=== PATIENT | female | born 1940 | race Asian ===

== ENCOUNTER 2020-06-28 14:05 | Emergency (ER) | payer MEDICARE, MEDICAID ==
--- NOTE | 2020-06-28 14:41 | EDM.PDOC ---
ED HPI GENERAL MEDICAL PROBLEM - General Chief Complaint: General Stated Complaint: DIFFCULTY BREATHING/LOW BACK PAIN/ANXIETY Time Seen by Provider: 06/28/20 14:11 - History of Present Illness INITIAL COMMENTS - FREE TEXT/NARRATIVE: History of present illness: Patient presents with low back pain for 2 weeks she denies any trauma or injury no fevers. She is not had this type of pain before she states it hurts worse when she moves she denies any dysuria or fever she is not having any nausea or vomiting movement makes it worse being still makes it better it is unclear whether she has taken any medication for this or not Review of systems: As per history of present illness and below otherwise all systems reviewed and negative. Past medical history: As per history of present illness and as reviewed below otherwise nonc ontributory. Surgical history: As per history of present illness and as reviewed below otherwise noncontributory. Social history: No reported history of drug or alcohol abuse. Family history: As per history of present illness and as reviewed below otherwise noncontributory. Physical exam: HEENT: Atraumatic, normocephalic, pupils reactive, negative for conjunctival pallor or scleral icterus, mucous membranes moist, throat clear, neck supple, nontender, trachea midline. Lungs: Clear to auscultation, breath sounds equal bilaterally, chest nontender. Heart: S1S2, regular, negative for clicks, rubs, or JVD. Abdomen: Soft, nondistended, nontender. Negative for masses or hepatosplenomegaly. Negative for costovertebral tenderness. Pelvis: Stable nontender. Genitourinary: Deferred. Rectal: Deferred. Extremities: Atraumatic, negative for cords or calf pain. Neurovascular unremarkable. Neuro: Awake, alert, oriented. Cranial nerves II through XII unremarkable. Cerebellum unremarkable. Motor and sensory unremarkable throughout. Exam nonfocal. No saddle anesthesia great toe strength 5 out of 5 Back: There is tenderness in the paraspinal musculature at L4-L5 L3 no midline tenderness Diagnostics: [] Therapeutics: [] Impression: Low back pain [] Plan: Lumbar spine film urinalysis and reassess [] Definitive disposition and diagnosis as appropriate pending reevaluation and review of above. Lower Back Pain Score (Numeric/FACES): 7 ED ROS GENERAL - Review of Systems Review Of Systems: See Below ED EXAM, GENERAL - Physical Exam Exam: See Below Course - Vital Signs Text/Narrative:: Patient presents with atraumatic and afebrile back pain. No history of trauma no history of any heavy lifting her 3 view lumbar spine was read interpreted by me no acute fractures or dislocations are appreciated there are some minor DJD changes. Patient has a urinary tract infection she will be discharged with some Keflex follow-up with primary care Last Recorded V/S: Last Vital Signs Temp 36.2 C 06/28/20 14:34 Pulse 94 06/28/20 14:34 Resp 18 06/28/20 14:34 BP 163/86 H 06/28/20 14:34 Pulse Ox 95 06/28/20 14:36 - Orders/Labs/Meds Orders: Active Orders 24 hr Category Date Time Status Lumbar Spine 2 or 3V [CR] Stat Exams 06/28/20 14:38 Taken Labs: Laboratory Tests 06/28/20 Range/Units 14:49 Urine Color YELLOW Urine Appearance CLEAR Urine pH 7.0 (5.0-8.0) Ur Specific [place] 1.015 (1.001-1.035) Urine Protein TRACE H (NEGATIVE) mg/dL Urine Glucose (UA) NEGATIVE (NEGATIVE) mg/dL Urine Ketones TRACE H (NEGATIVE) mg/dL Urine Occult Blood TRACE-INTACT H (NEGATIVE) Urine Nitrite POSITIVE H (NEGATIVE) Urine Bilirubin SMALL H (NEGATIVE) Urine Ictotest NEGATIVE Urine Urobilinogen 1.0 (<2.0) EU/dL Ur Leukocyte Esterase SMALL H (NEGATIVE) Urine RBC 1-2 (0-2/HPF) Urine WBC 2-3 (0-5/HPF) Ur Epithelial Cells OCCASIONAL (NONE-FEW) Urine Bacteria 1+ H (NEGATIVE) Departure - Departure Time of Disposition: 15:52 Disposition: Home, Self-Care 01 Condition: Good Clinical Impression: Urinary tract infection, Back pain - Discharge Information *PRESCRIPTION DRUG MONITORING PROGRAM REVIEWED*: Not Applicable *COPY OF PRESCRIPTION DRUG MONITORING REPORT IN PATIENT ANTOLIN: Not Applicable Instructions: Urinary Tract Infection, Adult, [id number], Acute Back Pain, Adult Referrals: PCP,None [Primary Care Provider] - Forms: ED Department Discharge Additional Instructions: The following information is given to patients seen in the emergency department who are being discharged to home. This information is to outline your options for follow-up care. We provide all patients seen in our emergency department with a follow-up referral. The need for follow-up, as well as the timing and circumstances, are variable depending upon the specifics of your emergency department visit. If you don't have a primary care physician on staff, we will provide you with a referral. We always advise you to contact your personal physician following an emergency department visit to inform them of the circumstance of the visit and for follow-up with them and/or the need for any referrals to a consulting specialist. The emergency department will also refer you to a specialist when appropriate. This referral assures that you have the opportunity for follow-up care with a specialist. All of these measure are taken in an effort to provide you with optimal care, which includes your follow-up. Under all circumstances we always encourage you to contact your private physician who remains a resource for coordinating your care. When calling for follow-up care, please make the office aware that this follow-up is from your recent emergency room visit. If for any reason you are refused follow-up, please contact the [facility] Emergency Department at and asked to speak to the emergency department charge nurse. Sepsis Event Note (ED) - Evaluation Sepsis Screening Result: No Definite Risk - Focused Exam Vital Signs: Vital Signs Temp Pulse Resp BP Pulse Ox 06/28/20 14:36 95 06/28/20 14:34 36.2 C 94 18 163/86 H 89 L - My Orders Last 24 Hours: My Active Orders 06/28/20 14:38 Lumbar Spine 2 or 3V [CR] Stat - Assessment/Plan Last 24 Hours: My Active Orders 06/28/20 14:38 Lumbar Spine 2 or 3V [CR] Stat
[2020-06-28] MEDS ORDERED: Acetaminophen 500 MG Tab PO ONE (15:57)
--- NOTE | 2020-06-28 16:11 | CR ---
Indication: Lumbosacral spine Technique: Three views Comparison: None Findings: Bones: Alignment is normal. No fractures or bone lesions. Disc spaces: Small lumbar osteophytes, greatest at the L3-4 and L4-5 level consistent with degenerative disc disease. Soft tissues: Atherosclerosis. Dictated by Sascha Bowen MD @ Jun 28 2020 4:05PM Signed by Dr. Sascha Bowen @ Jun 28 2020 4:09PM
== END 2020-06-28 16:29 | disposition home or self-care (01) ==
LOC: MW.ED 14:05
DX: N39.0 Urinary tract infection, site not specified (principal)
CPT/HCPCS: 72100; 81001; 99283; A9270

== ENCOUNTER 2020-10-11 11:16 | Emergency (ER) | payer MEDICARE, MEDICAID ==
[2020-10-11] MEDS ORDERED: Sodium Chloride 0.9% 2.5 ML Syringe FLUSH PRN (11:51)
[2020-10-11] MEDS ORDERED: Sodium Chloride 0.9% 10 ML Syringe FLUSH PRN (11:51)
--- NOTE | 2020-10-11 11:54 | EDM.PDOC ---
ED HPI GENERAL MEDICAL PROBLEM - General Stated Complaint: NOT FEELING WELL Time Seen by Provider: 10/11/20 11:20 Source of Information: Reports: Patient History Limitations: Reports: No Limitations - History of Present Illness INITIAL COMMENTS - FREE TEXT/NARRATIVE: 71-year-old female past medical history hypertension, on a beta-jimy, hyperlipidemia, [id number] diabetes presents for generalized weakness and fall. History is from patient's son. Patient is Qatari speaking. Patient is noticed for the last couple of weeks feeling more dizzy and generalized weakness than normal. She does state that she is eating well. She denies any dysuria but notes that she is urinating a lot more frequently than normal. She states that she had this checked out last week and was told that s he did not have an infection. She fell last week but reports no injuries from that fall. She fell yesterday injuring her right hip and has since noticed pain. She has been able to walk. She states it is not painful to touch but it is painful to walk on. She denies loss of consciousness. She denies hitting her head yesterday but states that she hit her head when she fell a week ago. - Related Data Allergies Allergy/AdvReac Type Severity Reaction Status Date / Time No Known Allergies Allergy Verified 06/28/20 16:06 Home Meds: Home Meds Acetaminophen [Tylenol Extra Strength] 500 mg PO Q6H #40 tab 06/28/20 [Rx] Losartan [Cozaar] 50 mg PO DAILY 10/11/20 [History] Meloxicam [Mobic] 15 mg PO DAILY 10/11/20 [History] Pravastatin [Pravachol] 40 mg PO BEDTIME 10/11/20 [History] Solifenacin Succinate 5 mg PO DAILY 10/11/20 [History] amLODIPine [Norvasc] 10 mg PO DAILY 10/11/20 [History] atenoloL [Atenolol] 50 mg PO DAILY 10/11/20 [History] metFORMIN [Glucophage] 500 mg PO BIDMEALS 10/11/20 [History] Social & Family History - Caffeine Use Caffeine Use: Reports: None ED ROS GENERAL - Review of Systems Review Of Systems: Comprehensive ROS is negative, except as noted in HPI. ED EXAM, GENERAL - Physical Exam Exam: See Below Exam Limited By: No Limitations General Appearance: Alert, WD/WN, No Apparent Distress Eye Exam: Bilateral Eye: EOMI, PERRL Throat/Mouth: Normal Voice, No Airway Compromise Head: Atraumatic, Normocephalic Neck: Normal Inspection Respiratory/Chest: No Respiratory Distress, Lungs Clear, Normal Breath Sounds, No Accessory Muscle Use, Chest Non-Tender Cardiovascular: Normal Peripheral Pulses, Regular Rate, Rhythm, No Edema GI/Abdominal: Soft, Non-Tender Extremities: Normal Inspection, Normal Range of Motion, Non-Tender, Other (no pelvic TTP, no axial loading TTP, no overt extremity deformities ) Psychiatric: Normal Affect, Normal Mood Skin Exam: Warm, Dry, Intact, Normal Color #1 Interpretation EKG Date: 10/11/20 Time: 11:57 Rhythm: NSR Rate (Beats/Min): 93 [place]: Normal P-Wave: Present QRS: Normal ST-T: Normal QT: Normal KS/PQ Interval: 160 Comparison: NA - No Prior EKG EKG Interpretation Comments: non-ischemic EKG Course - Vital Signs Last Recorded V/S: Last Vital Signs Temp Pulse 89 10/11/20 13:00 Resp 21 H 10/11/20 13:00 BP 175/82 H 10/11/20 13:00 Pulse Ox 97 10/11/20 13:00 - Orders/Labs/Meds Orders: Active Orders 24 hr Category Date Time Status Blood Glucose Check, Bedside [RC] ONETIME Care 10/11/20 11:52 Active EKG Documentation Completion [RC] STAT Care 10/11/20 11:51 Active Insert Chavez Catheter [Insert Urinary Catheter] [OM.PC] Care 10/11/20 12:00 Ordered Q24H Urinary Catheter Assessment [RC] ASDIRECTED Care 10/11/20 12:00 Active Sodium Chloride 0.9% [Saline Flush] Med 10/11/20 11:51 Active 10 ml FLUSH ASDIRECTED PRN Sodium Chloride 0.9% [Saline Flush] Med 10/11/20 11:51 Active 2.5 ml FLUSH ASDIRECTED PRN Saline Lock Insert [OM.PC] Stat Oth 10/11/20 11:51 Ordered Medication Orders Sodium Chloride (Saline Flush) 10 ml FLUSH ASDIRECTED PRN PRN Reason: Keep Vein Open Last Admin: 10/11/20 13:05 Dose: 10 ml Documented by: MEL Sodium Chloride (Saline Flush) 2.5 ml FLUSH ASDIRECTED PRN PRN Reason: Keep Vein Open Last Admin: 10/11/20 13:05 Dose: 2.5 ml Documented by: MEL Labs: Laboratory Tests 10/11/20 10/11/20 10/11/20 Range/Units 12:05 12:05 12:05 WBC 7.90 (4.0-11.0) K/uL RBC 5.49 (4.30-5.90) M/uL Hgb 13.7 (12.0-16.0) g/dL Hct 42.5 (36.0-46.0) % MCV 77.4 L (80.0-98.0) fL MCH 25.0 L (27.0-32.0) pg MCHC 32.2 (31.0-37.0) g/dL RDW Std Deviation 42.0 (28.0-62.0) fl RDW Coeff of Jonny 15 (11.0-15.0) % Plt Count 161 (150-400) K/uL MPV 10.00 (7.40-12.00) fL Neut % (Auto) 67.8 (48.0-80.0) % Lymph % (Auto) 22.3 (16.0-40.0) % [place] % (Auto) 8.1 (0.0-15.0) % Eos % (Auto) 1.4 (0.0-7.0) % Baso % (Auto) 0.4 (0.0-1.5) % Neut # (Auto) 5.4 (1.4-5.7) K/uL Lymph # (Auto) 1.8 (0.6-2.4) K/uL Marshall # (Auto) 0.6 (0.0-0.8) K/uL Eos # (Auto) 0.1 (0.0-0.7) K/uL Baso # (Auto) 0.0 (0.0-0.1) K/uL Nucleated RBC % 0.0 /100WBC Nucleated RBCs # 0 K/uL Lactate 1.1 (0.20-2.00) mmol/L Sodium 142 (136-145) mmol/L Potassium 3.7 (3.5-5.1) mmol/L Chloride 106 (98-107) mmol/L Carbon Dioxide 29.5 (21.0-32.0) mmol/L BUN 16 (7.0-18.0) mg/dL Creatinine 0.7 (0.6-1.0) mg/dL Est Cr Clr Drug Dosing TNP Estimated GFR (MDRD) > 60.0 ml/min Glucose 123 H (74-106) mg/dL POC Glucose (60-110) mg/dL Calcium 9.0 (8.5-10.1) mg/dL Magnesium 2.1 (1.8-2.4) mg/dL Total Bilirubin 0.4 (0.2-1.0) mg/dL AST 26 (15-37) IU/L ALT 32 (14-63) IU/L Alkaline Phosphatase 73 (46-116) U/L Troponin I < 0.050 (0.000-0.056) ng/mL B-Natriuretic Peptide (<100) PG/ML Total Protein 7.2 (6.4-8.2) g/dL Albumin 3.3 L (3.4-5.0) g/dL Globulin 3.9 (2.6-4.0) g/dL Albumin/Globulin Ratio 0.9 (0.9-1.6) TSH 3rd Generation 2.84 (0.36-3.74) uIU/mL Urine Color Urine Appearance Urine pH (5.0-8.0) Ur Specific [place] (1.001-1.035) Urine Protein (NEGATIVE) mg/dL Urine Glucose (UA) (NEGATIVE) mg/dL Urine Ketones (NEGATIVE) mg/dL Urine Occult Blood (NEGATIVE) Urine Nitrite (NEGATIVE) Urine Bilirubin (NEGATIVE) Urine Urobilinogen (<2.0) EU/dL Ur Leukocyte Esterase (NEGATIVE) SARS-CoV-2 RNA (ARI) (NEGATIVE) 10/11/20 10/11/20 10/11/20 Range/Units 12:05 12:17 12:20 WBC (4.0-11.0) K/uL RBC (4.30-5.90) M/uL Hgb (12.0-16.0) g/dL Hct (36.0-46.0) % MCV (80.0-98.0) fL MCH (27.0-32.0) pg MCHC (31.0-37.0) g/dL RDW Std Deviation (28.0-62.0) fl RDW Coeff of Jonny (11.0-15.0) % Plt Count (150-400) K/uL MPV (7.40-12.00) fL Neut % (Auto) (48.0-80.0) % Lymph % (Auto) (16.0-40.0) % Marshall % (Auto) (0.0-15.0) % Eos % (Auto) (0.0-7.0) % Baso % (Auto) (0.0-1.5) % Neut # (Auto) (1.4-5.7) K/uL Lymph # (Auto) (0.6-2.4) K/uL Marshall # (Auto) (0.0-0.8) K/uL Eos # (Auto) (0.0-0.7) K/uL Baso # (Auto) (0.0-0.1) K/uL Nucleated RBC % /100WBC Nucleated RBCs # K/uL Lactate (0.20-2.00) mmol/L Sodium (136-145) mmol/L Potassium (3.5-5.1) mmol/L Chloride (98-107) mmol/L Carbon Dioxide (21.0-32.0) mmol/L BUN (7.0-18.0) mg/dL Creatinine (0.6-1.0) mg/dL Est Cr Clr Drug Dosing Estimated GFR (MDRD) ml/min Glucose (74-106) mg/dL POC Glucose 119 H (60-110) mg/dL Calcium (8.5-10.1) mg/dL Magnesium (1.8-2.4) mg/dL Total Bilirubin (0.2-1.0) mg/dL AST (15-37) IU/L ALT (14-63) IU/L Alkaline Phosphatase (46-116) U/L Troponin I (0.000-0.056) ng/mL B-Natriuretic Peptide 12 (<100) PG/ML Total Protein (6.4-8.2) g/dL Albumin (3.4-5.0) g/dL Globulin (2.6-4.0) g/dL Albumin/Globulin Ratio (0.9-1.6) TSH 3rd Generation (0.36-3.74) uIU/mL Urine Color Urine Appearance Urine pH (5.0-8.0) Ur Specific [place] (1.001-1.035) Urine Protein (NEGATIVE) mg/dL Urine Glucose (UA) (NEGATIVE) mg/dL Urine Ketones (NEGATIVE) mg/dL Urine Occult Blood (NEGATIVE) Urine Nitrite (NEGATIVE) Urine Bilirubin (NEGATIVE) Urine Urobilinogen (<2.0) EU/dL Ur Leukocyte Esterase (NEGATIVE) SARS-CoV-2 RNA (ARI) NEGATIVE (NEGATIVE) 10/11/20 Range/Units 13:10 WBC (4.0-11.0) K/uL RBC (4.30-5.90) M/uL Hgb (12.0-16.0) g/dL Hct (36.0-46.0) % MCV (80.0-98.0) fL MCH (27.0-32.0) pg MCHC (31.0-37.0) g/dL RDW Std Deviation (28.0-62.0) fl RDW Coeff of Jonny (11.0-15.0) % Plt Count (150-400) K/uL MPV (7.40-12.00) fL Neut % (Auto) (48.0-80.0) % Lymph % (Auto) (16.0-40.0) % [place] % (Auto) (0.0-15.0) % Eos % (Auto) (0.0-7.0) % Baso % (Auto) (0.0-1.5) % Neut # (Auto) (1.4-5.7) K/uL Lymph # (Auto) (0.6-2.4) K/uL [place] # (Auto) (0.0-0.8) K/uL Eos # (Auto) (0.0-0.7) K/uL Baso # (Auto) (0.0-0.1) K/uL Nucleated RBC % /100WBC Nucleated RBCs # K/uL Lactate (0.20-2.00) mmol/L Sodium (136-145) mmol/L Potassium (3.5-5.1) mmol/L Chloride (98-107) mmol/L Carbon Dioxide (21.0-32.0) mmol/L BUN (7.0-18.0) mg/dL Creatinine (0.6-1.0) mg/dL Est Cr Clr Drug Dosing Estimated GFR (MDRD) ml/min Glucose (74-106) mg/dL POC Glucose (60-110) mg/dL Calcium (8.5-10.1) mg/dL Magnesium (1.8-2.4) mg/dL Total Bilirubin (0.2-1.0) mg/dL AST (15-37) IU/L ALT (14-63) IU/L Alkaline Phosphatase (46-116) U/L Troponin I (0.000-0.056) ng/mL B-Natriuretic Peptide (<100) PG/ML Total Protein (6.4-8.2) g/dL Albumin (3.4-5.0) g/dL Globulin (2.6-4.0) g/dL Albumin/Globulin Ratio (0.9-1.6) TSH 3rd Generation (0.36-3.74) uIU/mL Urine Color YELLOW Urine Appearance CLEAR Urine pH 6.5 (5.0-8.0) Ur Specific [place] 1.015 (1.001-1.035) Urine Protein NEGATIVE (NEGATIVE) mg/dL Urine Glucose (UA) NEGATIVE (NEGATIVE) mg/dL Urine Ketones NEGATIVE (NEGATIVE) mg/dL Urine Occult Blood NEGATIVE (NEGATIVE) Urine Nitrite NEGATIVE (NEGATIVE) Urine Bilirubin NEGATIVE (NEGATIVE) Urine Urobilinogen 0.2 (<2.0) EU/dL Ur Leukocyte Esterase NEGATIVE (NEGATIVE) SARS-CoV-2 RNA (ARI) (NEGATIVE) Meds: Medications Generic Name Dose Route Start Last Admin Trade Name Freq PRN Reason Stop Dose Admin Sodium Chloride 10 ml 10/11/20 11:51 10/11/20 13:05 Saline Flush FLUSH 10 ml ASDIRECTED PRN Administration Keep Vein Open Sodium Chloride 2.5 ml 10/11/20 11:51 10/11/20 13:05 Saline Flush FLUSH 2.5 ml ASDIRECTED PRN Administration Keep Vein Open - Re-Assessments/Exams Free Text/Narrative Re-Assessment/Exam: 10/11/20 12:46 We will get broad work-up for nonspecific symptoms. We will follow up results and disposition accordingly. 10/11/20 14:44 Labs and imaging are all unremarkable. Spoke with patient and son at length. Patient has been increasingly dizzy for several months. She does have a walker and a cane at home which she is hesitant to use. I explained to her the importance of using these assisted devices in order to maintain her independence. She understands. She will follow-up with her regular doctor. Return precautions were discussed at length. Departure - Departure Time of Disposition: 14:44 Disposition: Home, Self-Care 01 Condition: Good Clinical Impression: Weakness - Discharge Information Instructions: Weakness, [id number] Referrals: PCP,None [Primary Care Provider] - Additional Instructions: Your work-up is unremarkable. Please follow-up with your regular physician. If you have any concern at home about your safety please return to the emergency department. The following information is given to patients seen in the emergency department who are being discharged to home. This information is to outline your options for follow-up care. We provide all patients seen in our emergency department with a follow-up referral. The need for follow-up, as well as the timing and circumstances, are variable depending upon the specifics of your emergency department visit. If you don't have a primary care physician on staff, we will provide you with a referral. We always advise you to contact your personal physician following an emergency department visit to inform them of the circumstance of the visit and for follow-up with them and/or the need for any referrals to a consulting specialist. The emergency department will also refer you to a specialist when appropriate. This referral assures that you have the opportunity for follow-up care with a specialist. All of these measure are taken in an effort to provide you with optimal care, which includes your follow-up. Under all circumstances we always encourage you to contact your private physician who remains a resource for coordinating your care. When calling for follow-up care, please make the office aware that this follow-up is from your recent emergency room visit. If for any reason you are refused follow-up, please contact the [facility] Emergency Department at and asked to speak to the emergency department charge nurse. Please follow up with your primary care physician. If you do not have a primary care physician, see below: [facility] [address] [place] [id number] [address] [place] [address] [place] [address] [facility] [address] [place] [address] Sepsis Event Note (ED) - Focused Exam Vital Signs: Vital Signs Pulse Resp BP Pulse Ox 10/11/20 13:00 89 21 H 175/82 H 97 10/11/20 12:30 88 22 H 188/89 H 94 L 10/11/20 12:15 87 22 H 189/81 H 90 L - My Orders Last 24 Hours: My Active Orders 10/11/20 11:51 EKG Documentation Completion [RC] STAT Sodium Chloride 0.9% [Saline Flush] 10 ml FLUSH ASDIRECTED PRN Sodium Chloride 0.9% [Saline Flush] 2.5 ml FLUSH ASDIRECTED PRN Saline Lock Insert [OM.PC] Stat 10/11/20 11:52 Blood Glucose Check, Bedside [RC] ONETIME 10/11/20 12:00 Insert Chavez Catheter [Insert Urinary Catheter] [OM.PC] Q24H Urinary Catheter Assessment [RC] ASDIRECTED - Assessment/Plan Last 24 Hours: My Active Orders 10/11/20 11:51 EKG Documentation Completion [RC] STAT Sodium Chloride 0.9% [Saline Flush] 10 ml FLUSH ASDIRECTED PRN Sodium Chloride 0.9% [Saline Flush] 2.5 ml FLUSH ASDIRECTED PRN Saline Lock Insert [OM.PC] Stat 10/11/20 11:52 Blood Glucose Check, Bedside [RC] ONETIME 10/11/20 12:00 Insert Chavez Catheter [Insert Urinary Catheter] [OM.PC] Q24H Urinary Catheter Assessment [RC] ASDIRECTED
--- NOTE | 2020-10-11 12:45 | CR ---
INDICATION: Weakness. Trauma. COMPARISON: None TECHNIQUE: Single-view portable chest radiograph FINDINGS: TUBES AND LINES: None. HEART AND MEDIASTINUM: Enlarged heart. LUNGS AND PLEURAL SPACES: Abnormal pattern could represent mild pulmonary edema or multifocal pneumonia including COVID pneumonia if clinically appropriate. No pleural effusion or pneumothorax OSSEOUS STRUCTURES: Age-appropriate appearance. No acute focal finding. IMPRESSION: Enlarged heart. Abnormal pattern could represent mild pulmonary edema or multifocal pneumonia including COVID pneumonia if clinically appropriate. No visible acute posttraumatic finding. Dictated by Raf Lovett MD @ Oct 11 2020 12:42PM Signed by Dr. Raf Lovett @ Oct 11 2020 12:43PM
--- NOTE | 2020-10-11 12:47 | CR ---
Indication: Trauma Technique: Two views of the right hip were acquired is AP and lateral views Comparison: None Findings: Overlying soft tissue and humeral station limits the study. However, I see no fracture, dislocation or destructive process. There degenerative changes. Impression: Somewhat limited but no evidence of acute fracture, dislocation or destructive process involving the right hip Dictated by Raf Lovett MD @ Oct 11 2020 12:43PM Signed by Dr. Raf Lovett @ Oct 11 2020 12:45PM
[2020-10-11 12:58] LABS: BLOOD UREA NITROGEN,BUN 16 mg/dL (7.0-18.0); CARBON DIOXIDE,CO2 29.5 mmol/L (21.0-32.0); CHLORIDE,CL 106 mmol/L (98-107); GLUCOSE RANDOM 123 mg/dL (74-106); POTASSIUM,K 3.7 mmol/L (3.5-5.1); SODIUM,NA 142 mmol/L (136-145)
--- NOTE | 2020-10-11 13:45 | CT ---
INDICATION: Dizziness Trauma COMPARISON: None TECHNIQUE: CT examination of the head was performed as axial sections without intravenous contrast. Images were obtained from the vertex of the skull through the skull base. Please note that all CT scans at this facility use dose modulation, iterative reconstruction, and/or weight-based dosing when appropriate to reduce radiation dose to as low as reasonably achievable. FINDINGS: The brain shows no sign of mass lesion, mass effect, hemorrhage, or edema. There are involutional changes. There is mild to moderate cortical atrophy and there is mild white matter disease. There is no hydrocephalus. Small subcortical lacunar infarcts that do not appear to be acute. Intracranial atherosclerosis The visualized portions of the orbits are normal in appearance. The osseous structures are normal in appearance with no sign of abnormality in the skull base or calvarium. IMPRESSION: Involutional changes. No acute focal findings Please note that all CT scans at this facility use dose modulation, iterative reconstruction, and/or weight-based dosing when appropriate to reduce radiation dose to as low as reasonably achievable. Dictated by Raf Lovett MD @ Oct 11 2020 1:42PM Signed by Dr. Raf Lovett @ Oct 11 2020 1:44PM
--- NOTE | 2020-10-11 14:29 | CT ---
INDICATION: Trauma COMPARISON: None TECHNIQUE: CT examination of the cervical spine is performed without contrast using spiral technique. Thin axial, sagittal and coronal reconstructions were made. Please note that all CT scans at this facility use dose modulation, iterative reconstruction, and/or weight-based dosing when appropriate to reduce radiation dose to as low as reasonably achievable. FINDINGS: : There is straightening of the spine which is probably due to muscle spasm or positioning. Bone mineral density is decreased. Moderate degenerative changes are noted diffusely. There is no lytic or blastic lesion, fracture or dislocation identified. IMPRESSION: Straightening. Demineralization. Degenerative change. No evidence for acute fracture, dislocation or destructive process. Please note that all CT scans at this facility use dose modulation, iterative reconstruction, and/or weight-based dosing when appropriate to reduce radiation dose to as low as reasonably achievable. Dictated by Raf Lovett MD @ Oct 11 2020 2:25PM Signed by Dr. Raf Lovett @ Oct 11 2020 2:27PM
== END 2020-10-11 15:00 | disposition home or self-care (01) ==
LOC: MW.ED 11:16
DX: R53.1 Weakness (principal); R42 Dizziness and giddiness; I10 Essential (primary) hypertension; E78.5 Hyperlipidemia, unspecified; E11.9 Type 2 diabetes mellitus without complications; Z20.822 Contact with and (suspected) exposure to COVID-19; Z79.899 Other long term (current) drug therapy
CPT/HCPCS: 36415; 70450; 71045; 72125; 73502; 80053; 81003; 82962; 83605; 83735; 83880; 84443; 84484; 85025; 93005; 99285; U0002; 93010; 99283

== ENCOUNTER 2020-10-11 18:09 | Emergency (ER) | payer MEDICARE, MEDICAID ==
[2020-10-11] MEDS ORDERED: Sodium Chloride 0.9% 10 ML Syringe FLUSH PRN (18:12)
[2020-10-11] MEDS ORDERED: Sodium Chloride 0.9% 2.5 ML Syringe FLUSH PRN (18:12)
--- NOTE | 2020-10-11 18:17 | EDM.PDOC ---
<Jonh Vu - Last Filed: 10/11/20 20:47> ED HPI GENERAL MEDICAL PROBLEM - General Stated Complaint: EMS ARRIVAL Time Seen by Provider: 10/11/20 18:10 - History of Present Illness INITIAL COMMENTS - FREE TEXT/NARRATIVE: Patient was signed out to me by Dr. Morales pending CTA at 7PM I did reevaluate the patient and patient's vitals were stable and she did have a left-sided facial droop with left upper and left lower extremity weakness. At this time it is uncertain as to when the patient's last known well was however the patient was evaluated earlier today with a normal neurological examination. Therefore window is the last 8 hours. Therefore the TPA will not be administered. Labs reviewed CBC is unremarkable. Coags are within normal limits. Lactic acid is normal. CMP is unremarkable. Troponin is negative. Imaging reviewed CT head without contrast does not reveal any acute intracranial hemorrhage or abnormality. The radiological images were viewed by myself along with reading the report from the radiologist. CTA of the head and neck does not reveal any hemodynamically significant stenosis. After imaging I did discuss with patient and son at bedside that I would like to transfer for stroke work-up. They were amenable to this plan. I did contact Dr. Tolliver prior to transfer to see if this could be managed here. Given the need for MRI and no MRI capabilities here over the weekend the patient should be transferred. I contacted [facility] in [place] and spoke with Dr. Torres who accepted the transfer. The patient will be transferred via ALS ambulance. Contact information for son is [phone] ([facility]) DISPOSITION: Patient was transferred to [facility] in [place] in stable condition CONDITION: Fair PROCEDURES: None FINAL IMPRESSION(S)/DIAGNOSES: 1. Acute CVA with left-sided weakness Jonh Vu M.D. - Related Data Allergies Allergy/AdvReac Type Severity Reaction Status Date / Time No Known Allergies Allergy Verified 10/11/20 20:13 Home Meds: Home Meds Acetaminophen [Tylenol Extra Strength] 500 mg PO Q6H #40 tab 06/28/20 [Rx] Losartan [Cozaar] 50 mg PO DAILY 10/11/20 [History] Meloxicam [Mobic] 15 mg PO DAILY 10/11/20 [History] Pravastatin [Pravachol] 40 mg PO BEDTIME 10/11/20 [History] Solifenacin Succinate 5 mg PO DAILY 10/11/20 [History] amLODIPine [Norvasc] 10 mg PO DAILY 10/11/20 [History] atenoloL [Atenolol] 50 mg PO DAILY 10/11/20 [History] metFORMIN [Glucophage] 500 mg PO BIDMEALS 10/11/20 [History] Departure - Departure Disposition: DC/[facility]fer to Acute Hospital [facility] Clinical Impression: TIA (transient ischemic attack) - Discharge Information Referrals: PCP,None [Primary Care Provider] - Forms: ED Department Discharge <Len Morales - Last Filed: 10/12/20 08:26> ED HPI GENERAL MEDICAL PROBLEM - General Source of Information: Reports: Patient History Limitations: Reports: No Limitations - History of Present Illness INITIAL COMMENTS - FREE TEXT/NARRATIVE: 79-year-old female past medical history hypertension, [id number] braden betes, hyperlipidemia presents for fall and concern for CVA. Patient was seen earlier today for 2 times falls in the last few weeks and increasing dizziness over the last couple of months. She had an extensive work-up which was unremarkable and was sent home with PMD follow-up. After arriving home, she fell and she did hit her head. Per family she did not have loss of consciousness. She was assisted up and EMS was called. EMS noted her to have left-sided weakness which seems to be resolving in route. Patient currently complains of dizziness and states that her left hand is not working well. Social & Family History - Caffeine Use Caffeine Use: Reports: None ED ROS GENERAL - Review of Systems Review Of Systems: Comprehensive ROS is negative, except as noted in HPI. ED EXAM, GENERAL - Physical Exam Exam: See Below Exam Limited By: No Limitations General Appearance: Alert, WD/WN, No Apparent Distress Eye Exam: Bilateral Eye: EOMI, PERRL Ears: Normal External Exam Nose: Normal Inspection Throat/Mouth: Normal Voice, No Airway Compromise Head: Atraumatic, Normocephalic Neck: Normal Inspection, Non-Tender Respiratory/Chest: No Respiratory Distress, Lungs Clear, Normal Breath Sounds, No Accessory Muscle Use Cardiovascular: Normal Peripheral Pulses, Regular Rate, Rhythm GI/Abdominal: Soft, Non-Tender Back Exam: Normal Inspection Extremities: Normal Inspection Neurological: Alert, Oriented, Other (Mild left facial droop with smiling, LUE weakness although can lift against gravity, LLE mild weakness ) Psychiatric: Normal Affect, Normal Mood Skin Exam: Warm, Dry, Intact, Normal Color Course - Vital Signs Last Recorded V/S: Last Vital Signs Temp 98 F 10/11/20 18:09 Pulse 91 10/11/20 20:43 Resp 20 10/11/20 20:43 BP 182/87 H 10/11/20 20:43 Pulse Ox 92 L 10/11/20 20:43 - Orders/Labs/Meds Orders: Active Orders 24 hr Category Date Time Status Saline Lock Insert [OM.PC] Stat Oth 10/11/20 18:13 Ordered Labs: Laboratory Tests 10/11/20 10/11/20 10/11/20 Range/Units 18:10 18:10 18:10 WBC 9.42 (4.0-11.0) K/uL RBC 5.64 (4.30-5.90) M/uL Hgb 14.2 (12.0-16.0) g/dL Hct 43.6 (36.0-46.0) % MCV 77.3 L (80.0-98.0) fL MCH 25.2 L (27.0-32.0) pg MCHC 32.6 (31.0-37.0) g/dL RDW Std Deviation 42.0 (28.0-62.0) fl RDW Coeff of Jonny 15 (11.0-15.0) % Plt Count 171 (150-400) K/uL MPV 10.40 (7.40-12.00) fL Neut % (Auto) 72.3 (48.0-80.0) % Lymph % (Auto) 20.5 (16.0-40.0) % Emmons % (Auto) 6.2 (0.0-15.0) % Eos % (Auto) 0.8 (0.0-7.0) % Baso % (Auto) 0.2 (0.0-1.5) % Neut # (Auto) 6.8 H (1.4-5.7) K/uL Lymph # (Auto) 1.9 (0.6-2.4) K/uL Emmons # (Auto) 0.6 (0.0-0.8) K/uL Eos # (Auto) 0.1 (0.0-0.7) K/uL Baso # (Auto) 0.0 (0.0-0.1) K/uL Nucleated RBC % 0.0 /100WBC Nucleated RBCs # 0 K/uL INR 1.00 APTT 24.3 (18.6-31.3) SEC Lactate 1.4 (0.20-2.00) mmol/L Sodium (136-145) mmol/L Potassium (3.5-5.1) mmol/L Chloride (98-107) mmol/L Carbon Dioxide (21.0-32.0) mmol/L BUN (7.0-18.0) mg/dL Creatinine (0.6-1.0) mg/dL Est Cr Clr Drug Dosing Estimated GFR (MDRD) ml/min Glucose (74-106) mg/dL Calcium (8.5-10.1) mg/dL Magnesium (1.8-2.4) mg/dL Total Bilirubin (0.2-1.0) mg/dL AST (15-37) IU/L ALT (14-63) IU/L Alkaline Phosphatase (46-116) U/L Troponin I (0.000-0.056) ng/mL B-Natriuretic Peptide (<100) PG/ML Total Protein (6.4-8.2) g/dL Albumin (3.4-5.0) g/dL Globulin (2.6-4.0) g/dL Albumin/Globulin Ratio (0.9-1.6) 10/11/20 10/11/20 Range/Units 18:10 18:10 WBC (4.0-11.0) K/uL RBC (4.30-5.90) M/uL Hgb (12.0-16.0) g/dL Hct (36.0-46.0) % MCV (80.0-98.0) fL MCH (27.0-32.0) pg MCHC (31.0-37.0) g/dL RDW Std Deviation (28.0-62.0) fl RDW Coeff of Jonny (11.0-15.0) % Plt Count (150-400) K/uL MPV (7.40-12.00) fL Neut % (Auto) (48.0-80.0) % Lymph % (Auto) (16.0-40.0) % Emmons % (Auto) (0.0-15.0) % Eos % (Auto) (0.0-7.0) % Baso % (Auto) (0.0-1.5) % Neut # (Auto) (1.4-5.7) K/uL Lymph # (Auto) (0.6-2.4) K/uL Emmons # (Auto) (0.0-0.8) K/uL Eos # (Auto) (0.0-0.7) K/uL Baso # (Auto) (0.0-0.1) K/uL Nucleated RBC % /100WBC Nucleated RBCs # K/uL INR APTT (18.6-31.3) SEC Lactate (0.20-2.00) mmol/L Sodium 142 (136-145) mmol/L Potassium 3.6 (3.5-5.1) mmol/L Chloride 105 (98-107) mmol/L Carbon Dioxide 29.2 (21.0-32.0) mmol/L BUN 13 (7.0-18.0) mg/dL Creatinine 0.8 (0.6-1.0) mg/dL Est Cr Clr Drug Dosing TNP Estimated GFR (MDRD) > 60.0 ml/min Glucose 145 H (74-106) mg/dL Calcium 8.9 (8.5-10.1) mg/dL Magnesium 2.1 (1.8-2.4) mg/dL Total Bilirubin 0.4 (0.2-1.0) mg/dL AST 25 (15-37) IU/L ALT 32 (14-63) IU/L Alkaline Phosphatase 75 (46-116) U/L Troponin I < 0.050 (0.000-0.056) ng/mL B-Natriuretic Peptide 11 (<100) PG/ML Total Protein 7.2 (6.4-8.2) g/dL Albumin 3.4 (3.4-5.0) g/dL Globulin 3.8 (2.6-4.0) g/dL Albumin/Globulin Ratio 0.9 (0.9-1.6) Meds: Medications Discontinued Medications Generic Name Dose Route Start Last Admin Trade Name Freq PRN Reason Stop Dose Admin Aspirin 324 mg 10/11/20 18:50 10/11/20 19:32 Aspirin PO 10/11/20 18:51 324 mg ONETIME ONE Administration Iopamidol 100 ml 10/11/20 18:55 10/11/20 18:55 Isovue Multipack-370 (76%) IVPUSH 10/11/20 18:56 100 ml ONETIME ONE Administration Sodium Chloride 10 ml 10/11/20 18:12 10/11/20 19:32 Saline Flush FLUSH 10 ml ASDIRECTED PRN Administration Keep Vein Open Sodium Chloride 2.5 ml 10/11/20 18:12 10/11/20 19:32 Saline Flush FLUSH 2.5 ml ASDIRECTED PRN Administration Keep Vein Open - Re-Assessments/Exams Free Text/Narrative Re-Assessment/Exam: 10/11/20 18:40 CT head no hemorrhage on wet read; will get CTA head/neck. Will get additional labs. UA already sent earlier. CXR also already sent earlier so will defer. Patient care will be transitioned to night-team ED physician pending additional workup and likely admission. Departure - Departure Time of Disposition: 20:43 Sepsis Event Note (ED) - Focused Exam Vital Signs: Vital Signs Pulse Resp BP Pulse Ox 10/11/20 20:43 91 20 182/87 H 92 L - My Orders Last 24 Hours: My Active Orders 10/11/20 18:13 Saline Lock Insert [OM.PC] Stat - Assessment/Plan Last 24 Hours: My Active Orders 10/11/20 18:13 Saline Lock Insert [OM.PC] Stat
[2020-10-11 18:42] LABS: BLOOD UREA NITROGEN,BUN 13 mg/dL (7.0-18.0); CARBON DIOXIDE,CO2 29.2 mmol/L (21.0-32.0); CHLORIDE,CL 105 mmol/L (98-107); GLUCOSE RANDOM 145 mg/dL (74-106); POTASSIUM,K 3.6 mmol/L (3.5-5.1); SODIUM,NA 142 mmol/L (136-145)
[2020-10-11] MEDS ORDERED: Aspirin 81 MG Tab.Chew PO ONE (18:50)
[2020-10-11] MEDS ORDERED: Iopamidol 755 MG/ML 500 ML Multipack Bottle IVPUSH ONE (18:55)
--- NOTE | 2020-10-11 18:59 | CT ---
INDICATION: Left-sided weakness, recent fall. TECHNIQUE: CT head without contrast. COMPARISON: Head CT 10/11/2020 at 13:37 FINDINGS: CSF spaces: Within normal limits for age. Brain parenchyma: No intracranial bleed or mass effect. Old lacunar infarctions in the basal ganglia bilaterally with a small amount of low-density in the deep white matter. Skull base and calvarium: The visualized paranasal sinuses and mastoid air cells demonstrate no acute or significant findings. The visualized orbits are grossly unremarkable. No skull fractures. Atherosclerosis. IMPRESSION: 1. No intracranial bleed or mass effect. 2. Old basal ganglia lacunar infarcts. Nonspecific white matter disease, likely microangiopathy. 3. No acute interval change compared to the study of earlier today. Please note that all CT scans at this facility use dose modulation, iterative reconstruction, and/or weight-based dosing when appropriate to reduce radiation dose to as low as reasonably achievable. Dictated by Sascha Bowen MD @ Oct 11 2020 6:51PM Signed by Dr. Sascha Bowen @ Oct 11 2020 6:57PM
--- NOTE | 2020-10-11 19:12 | CT ---
INDICATION: Recent fall, left-sided weakness TECHNIQUE: CT cervical spine without contrast. COMPARISON: Cervical spine CT 10/11/2020 FINDINGS: Vertebrae: Alignment is normal. There are no fractures or suspicious bony lesions. Discs and facet joints: Facet hypertrophy C5-6 without significant stenosis. Facet hypertrophy C6-7 C7-T1 without significant stenosis. Extraspinal findings: Atherosclerosis. IMPRESSION: Minimal degenerative disc disease without evidence of cervical spine fracture. Please note that all CT scans at this facility use dose modulation, iterative reconstruction, and/or weight-based dosing when appropriate to reduce radiation dose to as low as reasonably achievable. Dictated by Sascha Bowen MD @ Oct 11 2020 6:51PM Signed by Dr. Sascha Bowen @ Oct 11 2020 7:11PM
--- NOTE | 2020-10-11 19:18 | CT ---
DATE: 10/11/2020 CLINICAL HISTORY: Patient with left-sided weakness. TECHNIQUE: Standard helical CT image acquisition through the head and neck was performed after intravenous contrast bolus enhancement. Multiplanar reconstructed images were performed and interpreted. COMPARISON: CT same day. FINDINGS: Images of the neck are degraded by patient motion. There is no proximal intracranial large vessel occlusion. There is mild diffuse intracranial atherosclerosis. The origins of the great vessels from the aortic arch are patent. The origin of the right vertebral artery is patent. The origin of the left vertebral artery is patent. The common carotid arteries are patent There is no stenosis at the origin of the right internal carotid artery. There is no stenosis at the origin of the left internal carotid artery. The rest of the cervical segments of the internal carotid arteries are patent up to their intracranial segments. The intracranial segments of the internal carotid arteries are patent. The right vertebral artery is dominant. The cervical segments of the vertebral arteries are patent. The intracranial segments of the vertebral arteries are patent. The visualized lung apices are unremarkable The thyroid gland is unremarkable. The soft tissues of the neck are unremarkable. There are degenerative changes in the cervical spine. IMPRESSION: Images of the neck are degraded by patient motion. 1. No proximal intracranial large vessel occlusion. 2. Mild diffuse intracranial atherosclerosis. 3. Grossly patent cervical vasculature. Please note that all CT scans at this facility use dose modulation, iterative reconstruction, and/or weight-based dosing when appropriate to reduce radiation dose to as low as reasonably achievable. Dictated by Dougie Villanueva MD @ Oct 11 2020 10:18PM Signed by Dr. Dougie Villanueva @ Oct 11 2020 10:26PM
== END 2020-10-11 21:40 ==
LOC: MW.ED 18:09
DX: I63.9 Cerebral infarction, unspecified (principal); R29.810 Facial weakness; G45.9 Transient cerebral ischemic attack, unspecified; I10 Essential (primary) hypertension; E11.9 Type 2 diabetes mellitus without complications; E78.5 Hyperlipidemia, unspecified; Z79.84 Long term (current) use of oral hypoglycemic drugs; Z79.899 Other long term (current) drug therapy
CPT/HCPCS: 36415; 70450; 70496; 70498; 72125; 80053; 83605; 83735; 83880; 84484; 85025; 85610; 85730; 93005; 99285; A9270; Q9967; 93010; 99283

== ENCOUNTER 2021-12-27 08:42 | Emergency (ER) | payer MEDICARE, MEDICAID ==
[2021-12-27] MEDS ORDERED: Sodium Chloride 0.9% 10 ML Syringe FLUSH PRN (09:07)
[2021-12-27] MEDS ORDERED: Sodium Chloride 0.9% 2.5 ML Syringe FLUSH PRN (09:07)
[2021-12-27 09:28] LABS: BLOOD UREA NITROGEN,BUN 21 mg/dL (7.0-18.0); CARBON DIOXIDE,CO2 31.6 mmol/L (21.0-32.0); CHLORIDE,CL 99 mmol/L (98-107); GLUCOSE RANDOM 148 mg/dL (74-106); LIPASE 62 U/L (73-393); POTASSIUM,K 4.3 mmol/L (3.5-5.1); SODIUM,NA 136 mmol/L (136-145)
== END 2021-12-27 11:24 | disposition home or self-care (01) ==
LOC: MW.ED 08:42
DX: S09.90XA Unspecified injury of head, initial encounter (principal); E78.00 Pure hypercholesterolemia, unspecified; I10 Essential (primary) hypertension; E11.9 Type 2 diabetes mellitus without complications; Z79.899 Other long term (current) drug therapy; Z79.84 Long term (current) use of oral hypoglycemic drugs; Z20.822 Contact with and (suspected) exposure to COVID-19; W01.10XA Fall on same level from slipping, tripping and stumbling with subsequent striking against unspecified object, initial encounter
CPT/HCPCS: 36415; 70450; 71045; 80053; 81001; 83605; 83690; 83880; 84484; 85025; 85610; 87040; 87086; 93005; 99284; J3490; U0002

== ENCOUNTER 2022-01-09 15:45 | Inpatient (IN) | payer MEDICARE, MEDICAID ==
[2022-01-09] MEDS ORDERED: Sodium Chloride 0.9% 10 ML Syringe FLUSH PRN (18:07)
[2022-01-09] MEDS ORDERED: Sodium Chloride 0.9% 2.5 ML Syringe FLUSH PRN (18:07)
[2022-01-09 19:26] LABS: BLOOD UREA NITROGEN,BUN 10 mg/dL (7.0-18.0); CARBON DIOXIDE,CO2 29.9 mmol/L (21.0-32.0); CHLORIDE,CL 101 mmol/L (98-107); GLUCOSE RANDOM 127 mg/dL (74-106); POTASSIUM,K 3.5 mmol/L (3.5-5.1); SODIUM,NA 139 mmol/L (136-145)
[2022-01-09 19:31] LABS: CORONAVIRUS COVID-19 NAA NEGATIVE (NEGATIVE); INFLUENZA A NAA NEGATIVE (NEGATIVE); INFLUENZA B NAA NEGATIVE (NEGATIVE)
[2022-01-09] MEDS ORDERED: Iopamidol 755 MG/ML 500 ML Multipack Bottle IVPUSH ONE (19:41)
[2022-01-09] MEDS ORDERED: Furosemide 40 MG/4 ML VIAL IVPUSH STA (23:13)
[2022-01-10] MEDS ORDERED: Furosemide 40 MG/4 ML VIAL IVPUSH SCH (10:15)
[2022-01-10] MEDS ORDERED: Furosemide 40 MG/4 ML VIAL IVPUSH ONE ×2 (10:33→12:15)
[2022-01-10] MEDS: Atenolol 50 MG Tab PO SCH (12:11)
[2022-01-10] MEDS: Losartan 50 MG Tab PO SCH (12:18)
[2022-01-10] MEDS: Enoxaparin 40 MG/0.4 ML Syringe SUBCUT SCH (12:18)
[2022-01-10 16:21] LABS: BLOOD UREA NITROGEN,BUN 11 mg/dL (7.0-18.0); CARBON DIOXIDE,CO2 31.6 mmol/L (21.0-32.0); CHLORIDE,CL 101 mmol/L (98-107); GLUCOSE RANDOM 145 mg/dL (74-106); POTASSIUM,K 3.6 mmol/L (3.5-5.1); SODIUM,NA 140 mmol/L (136-145)
[2022-01-10] MEDS: metFORMIN 500 MG Tab PO SCH (17:23)
[2022-01-10] MEDS ORDERED: Albuterol/Ipratropium 3.0-0.5 MG/3 ML Neb Soln NEB PRN (18:35)
[2022-01-10] MEDS: Pravastatin 40 MG Tab PO SCH (20:32)
[2022-01-11 07:27] LABS: BLOOD UREA NITROGEN,BUN 15 mg/dL (7.0-18.0); CARBON DIOXIDE,CO2 32.8 mmol/L (21.0-32.0); CHLORIDE,CL 101 mmol/L (98-107); GLUCOSE RANDOM 129 mg/dL (74-106); POTASSIUM,K 3.5 mmol/L (3.5-5.1); SODIUM,NA 141 mmol/L (136-145)
[2022-01-11] MEDS: Atenolol 50 MG Tab PO SCH (08:11)
[2022-01-11] MEDS: Losartan 50 MG Tab PO SCH (08:11)
[2022-01-11] MEDS: Enoxaparin 40 MG/0.4 ML Syringe SUBCUT SCH (10:29)
[2022-01-11] MEDS: amLODIPine 5 MG Tab PO SCH (10:29)
[2022-01-11] MEDS: metFORMIN 500 MG Tab PO SCH ×2 (10:38→17:08)
[2022-01-11] MEDS ORDERED: Furosemide 40 MG/4 ML VIAL IVPUSH ONE (11:19)
[2022-01-11] MEDS ORDERED: Glucagon,Human Recombinant 1 MG Vial IM PRN (11:28)
[2022-01-11] MEDS ORDERED: 50% Dextrose in Water 50 ML Syringe IVPUSH PRN (11:28)
[2022-01-11] MEDS: Insulin Aspart 100 Units/ML 3 ML Pen SUBCUT SCH ×2 (12:06→17:09)
[2022-01-11] MEDS: Pravastatin 40 MG Tab PO SCH (22:40)
[2022-01-12] MEDS: Insulin Aspart 100 Units/ML 3 ML Pen SUBCUT SCH ×3 (08:56→17:42)
[2022-01-12] MEDS: metFORMIN 500 MG Tab PO SCH ×2 (08:57→17:58)
[2022-01-12] MEDS: Losartan 50 MG Tab PO SCH (08:57)
[2022-01-12] MEDS: Atenolol 50 MG Tab PO SCH (08:57)
[2022-01-12] MEDS: amLODIPine 5 MG Tab PO SCH (08:57)
[2022-01-12] MEDS: Enoxaparin 40 MG/0.4 ML Syringe SUBCUT SCH (09:48)
[2022-01-12] MEDS ORDERED: Furosemide 40 MG/4 ML VIAL IVPUSH ONE (17:49)
[2022-01-12] MEDS: Pravastatin 40 MG Tab PO SCH (22:07)
[2022-01-13 06:31] LABS: BLOOD UREA NITROGEN,BUN 13 mg/dL (7.0-18.0); CARBON DIOXIDE,CO2 30.7 mmol/L (21.0-32.0); CHLORIDE,CL 102 mmol/L (98-107); GLUCOSE RANDOM 128 mg/dL (74-106); POTASSIUM,K 3.7 mmol/L (3.5-5.1); SODIUM,NA 140 mmol/L (136-145)
[2022-01-13] MEDS: Insulin Aspart 100 Units/ML 3 ML Pen SUBCUT SCH (08:05)
[2022-01-13] MEDS: Losartan 50 MG Tab PO SCH (08:06)
[2022-01-13] MEDS: Atenolol 50 MG Tab PO SCH (08:06)
[2022-01-13] MEDS: amLODIPine 5 MG Tab PO SCH (08:07)
[2022-01-13] MEDS: metFORMIN 500 MG Tab PO SCH (08:07)
== END 2022-01-13 10:00 | DRG 291 ==
LOC: MW.ED 15:45 → MW.MS 23:31
PROVIDERS: ADMIT Internal Medicine; ATTEND Internal Medicine
DX: I11.0 Hypertensive heart disease with heart failure (principal); I50.33 Acute on chronic diastolic (congestive) heart failure; S22.069A Unspecified fracture of T7-T8 vertebra, initial encounter for closed fracture; I69.354 Hemiplegia and hemiparesis following cerebral infarction affecting left non-dominant side; E11.9 Type 2 diabetes mellitus without complications; Z20.822 Contact with and (suspected) exposure to COVID-19; Z66 Do not resuscitate; E78.00 Pure hypercholesterolemia, unspecified; K21.9 Gastro-esophageal reflux disease without esophagitis; Z86.16 Personal history of COVID-19; E87.6 Hypokalemia; I35.0 Nonrheumatic aortic (valve) stenosis; Z74.01 Bed confinement status; R13.10 Dysphagia, unspecified; H54.7 Unspecified visual loss; E78.6 Lipoprotein deficiency; M62.81 Muscle weakness (generalized); R29.6 Repeated falls; Z79.84 Long term (current) use of oral hypoglycemic drugs; Z79.899 Other long term (current) drug therapy
CPT/HCPCS: 0240U; 36415; 71045; 71275; 80048; 80053; 83880; 84484; 85025; 93005; 93306; 96374; 99285; 99222; 99232; 99239; 99291; A9270-GY; J1650; J1940; J3490; Q9967; U0002

== ENCOUNTER 2023-07-06 20:03 | Inpatient (IN) | payer MEDICARE, MEDICAID ==
[2023-07-06 20:22] LABS: BASE EXCESS VENOUS 2.5 (-2.0-3.0); BASOPHILS ABSOLUTE AUTO 0.03 K/uL (0.00-0.20); BASOPHILS PERCENT AUTO 0.2 % (0.0-1.0); EOSINOPHILS ABSOLUTE AUTO 0.02 K/uL (0.00-0.45); EOSINOPHILS PERCENT AUTO 0.2 % (0.0-6.0); HEMOGLOBIN 12.8 g/dL (12.0-16.0); IMMATURE GRAN ABSOLUTE AUTO 0.03 K/uL (0.00-0.05); IMMATURE GRAN PERCENT AUTO 0.2 % (0.0-0.4); LYMPHOCYTES ABSOLUTE AUTO 0.82 K/uL (1.00-4.80); LYMPHOCYTES PERCENT AUTO 6.7 % (24.0-44.0); MEAN CORPUSCULAR HEMOGLOBIN 24.7 pg (28.0-32.0); MEAN CORPUSCULAR HGB CONC 32.8 g/dL (32.0-36.0); MEAN CORPUSCULAR VOLUME 75.3 fL (83.0-99.0); MEAN PLATELET VOLUME 9.8 fL (9.4-12.3); MONOCYTES ABSOLUTE AUTO 0.78 K/uL (0.00-0.80); MONOCYTES PERCENT AUTO 6.4 % (0.0-8.0); NEUTROPHILS PERCENT AUTO 86.3 % (41.0-71.0); PH,VENOUS 7.4 (7.31-7.41); PLATELET COUNT,PLT 198 K/uL (150-400); RED BLOOD CELL COUNT 5.18 M/uL (4.10-5.30); WHITE BLOOD CELL COUNT,WBC 12.28 K/uL (3.9-11.3)
[2023-07-06] MEDS ORDERED: Acetaminophen 500 MG Tab PO ONE (20:32)
[2023-07-06] MEDS ORDERED: Cefepime 2 GM in Sodium Chloride 0.9% 50 ML IV ONE (20:32)
[2023-07-06] MEDS ORDERED: Sodium Chloride 0.9% 1,000 ML IV ONE ×2 (20:33→21:35)
[2023-07-06 20:39] LABS: PTT,PARTIAL THROMBOPLSTIN TIME 27.1 SEC (23.9-30.7)
[2023-07-06 20:51] LABS: A/G RATIO 0.9 (0.9-1.6); ALBUMIN 3.6 g/dL (3.4-5.0); BILIRUBIN TOTAL 0.5 mg/dL (0.2-1.0); C-REACTIVE PROTEIN 1.42 mg/dL (<0.3); CARBON DIOXIDE,CO2 25.8 mmol/L (21.0-32.0); CREATININE 0.9 mg/dL (0.6-1.0); EST CRCL DRUG DOSING (CG) 36.99 mL/min; MAGNESIUM 1.7 mg/dL (1.8-2.4); POTASSIUM,K 4.2 mmol/L (3.5-5.1); PROTEIN TOTAL,TP 7.7 g/dL (6.4-8.2)
[2023-07-06 21:21] LABS: LACTIC ACID 2.5 mmol/L (0.4-2.0)
[2023-07-06] MEDS ORDERED: Iopamidol 755 MG/ML 500 ML Multipack Bottle IVPUSH ONE (21:56)
[2023-07-06 22:12] LABS: APPEARANCE,URINE CLEAR; BILIRUBIN,URINE NEGATIVE (NEGATIVE); COLOR,URINE YELLOW; GLUCOSE,URINE NEGATIVE (NEGATIVE); KETONES,URINE TRACE mg/dL (NEGATIVE); LEUKOCYTE ESTERASE,URINE NEGATIVE (NEGATIVE); NITRITE,URINE NEGATIVE (NEGATIVE); OCCULT BLOOD,URINE TRACE-INTACT (NEGATIVE); PH,URINE 6.5 (5.0-8.0); PROTEIN,URINE NEGATIVE (NEGATIVE); UROBILINOGEN,URINE 0.2 EU/dL (<2.0)
[2023-07-06 22:28] LABS: BACTERIA,URINE FEW (NEGATIVE); EPITHELIAL CELLS,URINE FEW (NONE-FEW); RBC,URINE 0-2 (0-2/HPF); WBC,URINE 0-3 (0-5/HPF)
[2023-07-06 22:49] LABS: CORONAVIRUS COVID-19 NAA NEGATIVE (NEGATIVE); INFLUENZA A NAA NEGATIVE (NEGATIVE); INFLUENZA B NAA NEGATIVE (NEGATIVE)
[2023-07-06] MEDS ORDERED: Ibuprofen 400 MG Tab PO ONE (22:49)
[2023-07-06] MEDS: Azithromycin 500 MG in Sodium Chloride 0.9% 250 ML IV SCH (23:23)
[2023-07-07] MEDS ORDERED: Sodium Chloride 0.9% 500 ML IV ONE (02:50)
[2023-07-07] MEDS ORDERED: 50% Dextrose in Water 50 ML Syringe IVPUSH PRN (02:58)
[2023-07-07] MEDS ORDERED: Glucagon,Human Recombinant 1 MG Vial IM PRN (02:58)
[2023-07-07] MEDS: Acetaminophen 325 MG Tab PO PRN ×3 (04:40→23:05)
[2023-07-07] MEDS ORDERED: Albuterol/Ipratropium 3.0-0.5 MG/3 ML Neb Soln NEB ONE (04:54)
[2023-07-07] MEDS ORDERED: Albuterol/Ipratropium 3.0-0.5 MG/3 ML Neb Soln ONE (04:55)
[2023-07-07 06:27] LABS: BASOPHILS ABSOLUTE AUTO 0.02 K/uL (0.00-0.20); BASOPHILS PERCENT AUTO 0.2 % (0.0-1.0); IMMATURE GRAN ABSOLUTE AUTO 0.04 K/uL (0.00-0.05); IMMATURE GRAN PERCENT AUTO 0.4 % (0.0-0.4); LYMPHOCYTES ABSOLUTE AUTO 0.68 K/uL (1.00-4.80); MEAN CORPUSCULAR HEMOGLOBIN 25.3 pg (28.0-32.0); MEAN CORPUSCULAR HGB CONC 33.3 g/dL (32.0-36.0); MEAN PLATELET VOLUME 9.5 fL (9.4-12.3); MONOCYTES ABSOLUTE AUTO 0.61 K/uL (0.00-0.80); MONOCYTES PERCENT AUTO 5.4 % (0.0-8.0); NEUTROPHILS ABSOLUTE AUTO 10.02 K/uL (1.80-7.70); PLATELET COUNT,PLT 155 K/uL (150-400); RED BLOOD CELL COUNT 4.34 M/uL (4.10-5.30); WHITE BLOOD CELL COUNT,WBC 11.37 K/uL (3.9-11.3)
[2023-07-07 06:45] LABS: CALCIUM 8.3 mg/dL (8.5-10.1); CARBON DIOXIDE,CO2 23.7 mmol/L (21.0-32.0); CREATININE 0.9 mg/dL (0.6-1.0); EST CRCL DRUG DOSING (CG) 36.99 mL/min; POTASSIUM,K 3.7 mmol/L (3.5-5.1)
[2023-07-07] MEDS ORDERED: Sodium Chloride 0.9% 1,000 ML IV SCH (07:00)
[2023-07-07] MEDS ORDERED: Lactated Ringers 500 ML IV SCH (09:00)
[2023-07-07] MEDS: Insulin Aspart 100 Units/ML 3 ML Pen SUBCUT SCH ×3 (09:32→17:09)
[2023-07-07] MEDS: Pantoprazole 40 MG Tab.CR PO SCH (09:35)
[2023-07-07] MEDS: Enoxaparin 40 MG/0.4 ML Syringe SUBCUT SCH (09:35)
[2023-07-07] MEDS: Cefepime 2 GM in Sodium Chloride 0.9% 50 ML IV SCH ×2 (10:01→20:13)
[2023-07-07] MEDS: Albuterol/Ipratropium 3.0-0.5 MG/3 ML Neb Soln NEB SCH ×4 (10:17→21:10)
[2023-07-07] MEDS ORDERED: Ondansetron 4 MG/2 ML SDV IVPUSH PRN (12:04)
[2023-07-07 14:42] LABS: LACTIC ACID 1.1 mmol/L (0.4-2.0)
[2023-07-07] MEDS: Pravastatin 40 MG Tab PO SCH (20:15)
[2023-07-07] MEDS: Azithromycin 500 MG in Sodium Chloride 0.9% 250 ML IV SCH (23:06)
[2023-07-07] MEDS ORDERED: VANCOmycin 1.75 GM/350 ML 350 ML IV ONE (23:30)
[2023-07-08] MEDS: Albuterol/Ipratropium 3.0-0.5 MG/3 ML Neb Soln NEB SCH ×6 (02:52→21:39)
[2023-07-08 06:21] LABS: HEMATOCRIT 31.8 % (37.0-47.0); HEMOGLOBIN 10.6 g/dL (12.0-16.0); MEAN CORPUSCULAR HEMOGLOBIN 24.9 pg (28.0-32.0); MEAN CORPUSCULAR HGB CONC 33.3 g/dL (32.0-36.0); MEAN CORPUSCULAR VOLUME 74.6 fL (83.0-99.0); MEAN PLATELET VOLUME 9.5 fL (9.4-12.3); PLATELET COUNT,PLT 158 K/uL (150-400); RED BLOOD CELL COUNT 4.26 M/uL (4.10-5.30); WHITE BLOOD CELL COUNT,WBC 8.22 K/uL (3.9-11.3)
[2023-07-08] MEDS: Insulin Aspart 100 Units/ML 3 ML Pen SUBCUT SCH ×3 (06:31→16:44)
[2023-07-08 06:50] LABS: A/G RATIO 0.7 (0.9-1.6); ALBUMIN 2.4 g/dL (3.4-5.0); BILIRUBIN TOTAL 0.4 mg/dL (0.2-1.0); CALCIUM 7.9 mg/dL (8.5-10.1); CARBON DIOXIDE,CO2 24.9 mmol/L (21.0-32.0); CREATININE 0.8 mg/dL (0.6-1.0); EST CRCL DRUG DOSING (CG) 41.62 mL/min; MAGNESIUM 1.7 mg/dL (1.8-2.4); POTASSIUM,K 3.4 mmol/L (3.5-5.1)
[2023-07-08 07:19] LABS: BAND ABSOLUTE MAN 0.8; BAND PERCENT MAN 10 %; LYMPHOCYTES ABSOLUTE MAN 1.2 (0.6-2.4); LYMPHOCYTES PERCENT MAN 15 % (16.0-40.0); MONOCYTES ABSOLUTE MAN 0.2 (0.0-0.8); MONOCYTES PERCENT MAN 3 % (0.0-15.0); SEG NEUTROPHILS ABSOLUTE MAN 5.9 (1.4-5.7); SEG NEUTROPHILS PERCENT MAN 72 % (48.0-80.0)
[2023-07-08] MEDS ORDERED: Potassium Chloride 20 MEQ Tab.ER PO ONE (07:38)
[2023-07-08] MEDS: Enoxaparin 40 MG/0.4 ML Syringe SUBCUT SCH (08:01)
[2023-07-08] MEDS: Pantoprazole 40 MG Tab.CR PO SCH (08:01)
[2023-07-08] MEDS ORDERED: Magnesium Sulfate/Water 2 GM in Premix Bag 1 BAG IV ONE (08:12)
[2023-07-08] MEDS: Cefepime 2 GM in Sodium Chloride 0.9% 50 ML IV SCH ×2 (08:17→20:14)
[2023-07-08] MEDS: Acetaminophen 325 MG Tab PO PRN (08:32)
[2023-07-08] MEDS: Pravastatin 40 MG Tab PO SCH (20:13)
[2023-07-08] MEDS: Azithromycin 500 MG in Sodium Chloride 0.9% 250 ML IV SCH (22:56)
[2023-07-09] MEDS: Albuterol/Ipratropium 3.0-0.5 MG/3 ML Neb Soln NEB SCH ×2 (02:32→06:20)
[2023-07-09] MEDS: Insulin Aspart 100 Units/ML 3 ML Pen SUBCUT SCH ×3 (06:36→16:48)
[2023-07-09 06:51] LABS: BASOPHILS ABSOLUTE AUTO 0.01 K/uL (0.00-0.20); BASOPHILS PERCENT AUTO 0.2 % (0.0-1.0); EOSINOPHILS ABSOLUTE AUTO 0.01 K/uL (0.00-0.45); EOSINOPHILS PERCENT AUTO 0.2 % (0.0-6.0); HEMATOCRIT 31.2 % (37.0-47.0); HEMOGLOBIN 10.4 g/dL (12.0-16.0); IMMATURE GRAN ABSOLUTE AUTO 0.02 K/uL (0.00-0.05); IMMATURE GRAN PERCENT AUTO 0.3 % (0.0-0.4); LYMPHOCYTES ABSOLUTE AUTO 0.86 K/uL (1.00-4.80); LYMPHOCYTES PERCENT AUTO 14.4 % (24.0-44.0); MEAN CORPUSCULAR HEMOGLOBIN 24.8 pg (28.0-32.0); MEAN CORPUSCULAR HGB CONC 33.3 g/dL (32.0-36.0); MEAN CORPUSCULAR VOLUME 74.5 fL (83.0-99.0); MEAN PLATELET VOLUME 9.7 fL (9.4-12.3); MONOCYTES ABSOLUTE AUTO 0.42 K/uL (0.00-0.80); NEUTROPHILS ABSOLUTE AUTO 4.66 K/uL (1.80-7.70); NEUTROPHILS PERCENT AUTO 77.9 % (41.0-71.0); PLATELET COUNT,PLT 159 K/uL (150-400); RED BLOOD CELL COUNT 4.19 M/uL (4.10-5.30); WHITE BLOOD CELL COUNT,WBC 5.98 K/uL (3.9-11.3)
[2023-07-09 07:21] LABS: A/G RATIO 0.7 (0.9-1.6); ALBUMIN 2.5 g/dL (3.4-5.0); BILIRUBIN TOTAL 0.3 mg/dL (0.2-1.0); CALCIUM 8.1 mg/dL (8.5-10.1); CARBON DIOXIDE,CO2 25.8 mmol/L (21.0-32.0); CREATININE 0.6 mg/dL (0.6-1.0); EST CRCL DRUG DOSING (CG) 55.49 mL/min; PROTEIN TOTAL,TP 6.1 g/dL (6.4-8.2)
[2023-07-09] MEDS: Acetaminophen 325 MG Tab PO PRN ×2 (07:30→19:44)
[2023-07-09] MEDS: Cefepime 2 GM in Sodium Chloride 0.9% 50 ML IV SCH ×2 (08:00→20:18)
[2023-07-09] MEDS: Pantoprazole 40 MG Tab.CR PO SCH (08:01)
[2023-07-09] MEDS: Enoxaparin 40 MG/0.4 ML Syringe SUBCUT SCH (08:01)
[2023-07-09] MEDS ORDERED: Atenolol 25 MG Tab PO SCH (09:00)
[2023-07-09] MEDS: Albuterol/Ipratropium 3.0-0.5 MG/3 ML Neb Soln NEB PRN ×3 (10:34→19:03)
[2023-07-09] MEDS: Pravastatin 40 MG Tab PO SCH (20:23)
[2023-07-09] MEDS: Azithromycin 500 MG in Sodium Chloride 0.9% 250 ML IV SCH (22:24)
[2023-07-10] MEDS: Albuterol/Ipratropium 3.0-0.5 MG/3 ML Neb Soln NEB SCH ×5 (00:27→23:18)
[2023-07-10] MEDS ORDERED: Diltiazem 25 MG/5 ML SDV IVPUSH STA (03:51)
[2023-07-10] MEDS: Albuterol/Ipratropium 3.0-0.5 MG/3 ML Neb Soln NEB PRN ×2 (04:10→08:50)
[2023-07-10 04:19] LABS: BASOPHILS ABSOLUTE AUTO 0.01 K/uL (0.00-0.20); BASOPHILS PERCENT AUTO 0.1 % (0.0-1.0); EOSINOPHILS ABSOLUTE AUTO 0.01 K/uL (0.00-0.45); EOSINOPHILS PERCENT AUTO 0.1 % (0.0-6.0); HEMATOCRIT 33.4 % (37.0-47.0); HEMOGLOBIN 11.3 g/dL (12.0-16.0); IMMATURE GRAN ABSOLUTE AUTO 0.02 K/uL (0.00-0.05); IMMATURE GRAN PERCENT AUTO 0.2 % (0.0-0.4); LYMPHOCYTES ABSOLUTE AUTO 0.97 K/uL (1.00-4.80); LYMPHOCYTES PERCENT AUTO 11.6 % (24.0-44.0); MEAN CORPUSCULAR HEMOGLOBIN 24.9 pg (28.0-32.0); MEAN CORPUSCULAR HGB CONC 33.8 g/dL (32.0-36.0); MEAN CORPUSCULAR VOLUME 73.6 fL (83.0-99.0); MEAN PLATELET VOLUME 9.3 fL (9.4-12.3); MONOCYTES ABSOLUTE AUTO 0.86 K/uL (0.00-0.80); MONOCYTES PERCENT AUTO 10.3 % (0.0-8.0); NEUTROPHILS ABSOLUTE AUTO 6.52 K/uL (1.80-7.70); NEUTROPHILS PERCENT AUTO 77.7 % (41.0-71.0); PLATELET COUNT,PLT 183 K/uL (150-400); RED BLOOD CELL COUNT 4.54 M/uL (4.10-5.30); WHITE BLOOD CELL COUNT,WBC 8.39 K/uL (3.9-11.3)
[2023-07-10] MEDS ORDERED: Diltiazem 100 MG in Sodium Chloride 0.9% 100 ML IV SCH (04:30)
[2023-07-10 04:43] LABS: A/G RATIO 0.6 (0.9-1.6); ALBUMIN 2.6 g/dL (3.4-5.0); BILIRUBIN TOTAL 0.4 mg/dL (0.2-1.0); CALCIUM 8.3 mg/dL (8.5-10.1); CARBON DIOXIDE,CO2 24.2 mmol/L (21.0-32.0); CREATININE 0.6 mg/dL (0.6-1.0); EST CRCL DRUG DOSING (CG) 55.49 mL/min; POTASSIUM,K 3.6 mmol/L (3.5-5.1); PROTEIN TOTAL,TP 6.8 g/dL (6.4-8.2)
[2023-07-10 05:06] LABS: BORDETELLA PARAPERT IS1001 Not Detected (Not Detected)
[2023-07-10] MEDS: Metoprolol Tartrate 25 MG Tab PO SCH ×2 (05:10→16:38)
[2023-07-10] MEDS: Insulin Aspart 100 Units/ML 3 ML Pen SUBCUT SCH ×3 (06:38→16:37)
[2023-07-10] MEDS: Enoxaparin 40 MG/0.4 ML Syringe SUBCUT SCH (09:10)
[2023-07-10] MEDS: Pantoprazole 40 MG Tab.CR PO SCH (09:10)
[2023-07-10] MEDS ORDERED: Potassium Chloride 20 MEQ in Premix Bag 1 BAG IV SCH (09:30)
[2023-07-10] MEDS ORDERED: Sodium Chloride 0.9% 500 ML IV ONE (09:30)
[2023-07-10] MEDS: Cefepime 2 GM in Sodium Chloride 0.9% 50 ML IV SCH ×2 (10:00→21:03)
[2023-07-10] MEDS ORDERED: Furosemide 20 MG/2 ML VIAL IVPUSH ONE (10:38)
[2023-07-10] MEDS ORDERED: Enoxaparin 60 MG/0.6 ML Syringe SUBCUT ONE (10:45)
[2023-07-10] MEDS ORDERED: Pantoprazole 40 MG in Sodium Chloride 0.9% 10 ML IVPUSH SCH (10:45)
[2023-07-10] MEDS ORDERED: Potassium Chloride 10% 20 MEQ/15 ML Soln 15 ML UD Cup PO ONE (11:30)
[2023-07-10] MEDS: predniSONE 20 MG Tab PO SCH (11:44)
[2023-07-10] MEDS: Enoxaparin 100 MG/1 ML Syringe SUBCUT SCH (21:03)
[2023-07-10] MEDS: Pravastatin 40 MG Tab PO SCH (21:04)
[2023-07-10] MEDS: Azithromycin 500 MG in Sodium Chloride 0.9% 250 ML IV SCH (23:16)
[2023-07-11] MEDS: Metoprolol Tartrate 25 MG Tab PO SCH ×2 (04:25→17:07)
[2023-07-11 05:48] LABS: BASOPHILS ABSOLUTE AUTO 0.01 K/uL (0.00-0.20); BASOPHILS PERCENT AUTO 0.2 % (0.0-1.0); HEMATOCRIT 32.5 % (37.0-47.0); HEMOGLOBIN 10.9 g/dL (12.0-16.0); IMMATURE GRAN ABSOLUTE AUTO 0.07 K/uL (0.00-0.05); IMMATURE GRAN PERCENT AUTO 1.2 % (0.0-0.4); LYMPHOCYTES ABSOLUTE AUTO 0.99 K/uL (1.00-4.80); LYMPHOCYTES PERCENT AUTO 17.2 % (24.0-44.0); MEAN CORPUSCULAR HEMOGLOBIN 24.9 pg (28.0-32.0); MEAN CORPUSCULAR HGB CONC 33.5 g/dL (32.0-36.0); MEAN CORPUSCULAR VOLUME 74.4 fL (83.0-99.0); MEAN PLATELET VOLUME 9.7 fL (9.4-12.3); MONOCYTES ABSOLUTE AUTO 0.69 K/uL (0.00-0.80); NEUTROPHILS PERCENT AUTO 69.4 % (41.0-71.0); PLATELET COUNT,PLT 191 K/uL (150-400); RED BLOOD CELL COUNT 4.37 M/uL (4.10-5.30); WHITE BLOOD CELL COUNT,WBC 5.76 K/uL (3.9-11.3)
[2023-07-11] MEDS: Albuterol/Ipratropium 3.0-0.5 MG/3 ML Neb Soln NEB SCH ×4 (06:13→23:13)
[2023-07-11 06:18] LABS: CALCIUM 8.3 mg/dL (8.5-10.1); CARBON DIOXIDE,CO2 29.7 mmol/L (21.0-32.0); CREATININE 0.6 mg/dL (0.6-1.0); EST CRCL DRUG DOSING (CG) 55.49 mL/min; MAGNESIUM 2.2 mg/dL (1.8-2.4); POTASSIUM,K 3.9 mmol/L (3.5-5.1)
[2023-07-11] MEDS: Insulin Aspart 100 Units/ML 3 ML Pen SUBCUT SCH ×3 (06:53→17:02)
[2023-07-11] MEDS: predniSONE 20 MG Tab PO SCH (08:14)
[2023-07-11] MEDS: Pantoprazole 40 MG Tab.CR PO SCH (08:14)
[2023-07-11] MEDS: Enoxaparin 100 MG/1 ML Syringe SUBCUT SCH ×2 (08:14→20:04)
[2023-07-11] MEDS: Cefepime 2 GM in Sodium Chloride 0.9% 50 ML IV SCH ×2 (08:15→20:04)
[2023-07-11] MEDS ORDERED: Potassium Chloride 20 MEQ Tab.ER PO ONE (10:18)
[2023-07-11] MEDS: Losartan 50 MG Tab PO SCH (11:30)
[2023-07-11] MEDS ORDERED: Furosemide 40 MG/4 ML VIAL IVPUSH ONE (13:13)
[2023-07-11] MEDS: Pravastatin 40 MG Tab PO SCH (20:03)
[2023-07-11] MEDS: Azithromycin 500 MG in Sodium Chloride 0.9% 250 ML IV SCH (22:16)
[2023-07-12] MEDS: Albuterol/Ipratropium 3.0-0.5 MG/3 ML Neb Soln NEB SCH ×4 (05:14→23:32)
[2023-07-12] MEDS: Metoprolol Tartrate 25 MG Tab PO SCH ×2 (05:14→15:49)
[2023-07-12 06:19] LABS: BASOPHILS ABSOLUTE AUTO 0.01 K/uL (0.00-0.20); BASOPHILS PERCENT AUTO 0.1 % (0.0-1.0); EOSINOPHILS ABSOLUTE AUTO 0.02 K/uL (0.00-0.45); EOSINOPHILS PERCENT AUTO 0.2 % (0.0-6.0); HEMATOCRIT 33.5 % (37.0-47.0); IMMATURE GRAN ABSOLUTE AUTO 0.11 K/uL (0.00-0.05); IMMATURE GRAN PERCENT AUTO 1.2 % (0.0-0.4); LYMPHOCYTES ABSOLUTE AUTO 1.74 K/uL (1.00-4.80); LYMPHOCYTES PERCENT AUTO 19.4 % (24.0-44.0); MEAN CORPUSCULAR HEMOGLOBIN 24.1 pg (28.0-32.0); MEAN CORPUSCULAR HGB CONC 32.8 g/dL (32.0-36.0); MEAN CORPUSCULAR VOLUME 73.3 fL (83.0-99.0); MEAN PLATELET VOLUME 9.5 fL (9.4-12.3); MONOCYTES ABSOLUTE AUTO 0.86 K/uL (0.00-0.80); MONOCYTES PERCENT AUTO 9.6 % (0.0-8.0); NEUTROPHILS ABSOLUTE AUTO 6.22 K/uL (1.80-7.70); NEUTROPHILS PERCENT AUTO 69.5 % (41.0-71.0); PLATELET COUNT,PLT 237 K/uL (150-400); RED BLOOD CELL COUNT 4.57 M/uL (4.10-5.30); WHITE BLOOD CELL COUNT,WBC 8.96 K/uL (3.9-11.3)
[2023-07-12 06:49] LABS: A/G RATIO 0.6 (0.9-1.6); ALBUMIN 2.5 g/dL (3.4-5.0); BILIRUBIN TOTAL 0.5 mg/dL (0.2-1.0); CALCIUM 8.5 mg/dL (8.5-10.1); CARBON DIOXIDE,CO2 30.3 mmol/L (21.0-32.0); CREATININE 0.6 mg/dL (0.6-1.0); EST CRCL DRUG DOSING (CG) 55.49 mL/min; POTASSIUM,K 3.3 mmol/L (3.5-5.1); PROTEIN TOTAL,TP 6.9 g/dL (6.4-8.2)
[2023-07-12] MEDS ORDERED: Potassium Chloride 20 MEQ Tab.ER PO ONE ×2 (07:28→10:03)
[2023-07-12] MEDS: Insulin Aspart 100 Units/ML 3 ML Pen SUBCUT SCH ×3 (07:51→16:25)
[2023-07-12] MEDS: predniSONE 20 MG Tab PO SCH (08:17)
[2023-07-12] MEDS: amLODIPine 5 MG Tab PO SCH (08:17)
[2023-07-12] MEDS: Pantoprazole 40 MG Tab.CR PO SCH (08:17)
[2023-07-12] MEDS: Losartan 50 MG Tab PO SCH (08:17)
[2023-07-12] MEDS: Enoxaparin 100 MG/1 ML Syringe SUBCUT SCH (08:18)
[2023-07-12] MEDS: Cefepime 2 GM in Sodium Chloride 0.9% 50 ML IV SCH ×2 (08:18→20:04)
[2023-07-12] MEDS: Furosemide 40 MG/4 ML VIAL IVPUSH SCH (08:51)
[2023-07-12] MEDS: Apixaban 5 MG Tab PO SCH ×2 (08:51→20:04)
[2023-07-12] MEDS: Pravastatin 40 MG Tab PO SCH (20:04)
[2023-07-13] MEDS: Metoprolol Tartrate 25 MG Tab PO SCH ×3 (04:33→17:19)
[2023-07-13] MEDS: Albuterol/Ipratropium 3.0-0.5 MG/3 ML Neb Soln NEB SCH ×3 (05:41→18:58)
[2023-07-13 06:27] LABS: BASOPHILS ABSOLUTE AUTO 0.02 K/uL (0.00-0.20); BASOPHILS PERCENT AUTO 0.2 % (0.0-1.0); EOSINOPHILS ABSOLUTE AUTO 0.02 K/uL (0.00-0.45); EOSINOPHILS PERCENT AUTO 0.2 % (0.0-6.0); HEMATOCRIT 34.1 % (37.0-47.0); HEMOGLOBIN 11.5 g/dL (12.0-16.0); IMMATURE GRAN ABSOLUTE AUTO 0.14 K/uL (0.00-0.05); IMMATURE GRAN PERCENT AUTO 1.5 % (0.0-0.4); LYMPHOCYTES ABSOLUTE AUTO 1.86 K/uL (1.00-4.80); LYMPHOCYTES PERCENT AUTO 20.5 % (24.0-44.0); MEAN CORPUSCULAR HEMOGLOBIN 24.7 pg (28.0-32.0); MEAN CORPUSCULAR HGB CONC 33.7 g/dL (32.0-36.0); MEAN CORPUSCULAR VOLUME 73.2 fL (83.0-99.0); MEAN PLATELET VOLUME 9.2 fL (9.4-12.3); MONOCYTES ABSOLUTE AUTO 0.83 K/uL (0.00-0.80); MONOCYTES PERCENT AUTO 9.1 % (0.0-8.0); NEUTROPHILS ABSOLUTE AUTO 6.21 K/uL (1.80-7.70); NEUTROPHILS PERCENT AUTO 68.5 % (41.0-71.0); PLATELET COUNT,PLT 278 K/uL (150-400); RED BLOOD CELL COUNT 4.66 M/uL (4.10-5.30); WHITE BLOOD CELL COUNT,WBC 9.08 K/uL (3.9-11.3)
[2023-07-13] MEDS: Insulin Aspart 100 Units/ML 3 ML Pen SUBCUT SCH ×3 (06:30→16:48)
[2023-07-13 06:56] LABS: A/G RATIO 0.7 (0.9-1.6); ALBUMIN 2.7 g/dL (3.4-5.0); BILIRUBIN TOTAL 0.4 mg/dL (0.2-1.0); CALCIUM 8.9 mg/dL (8.5-10.1); CARBON DIOXIDE,CO2 30.5 mmol/L (21.0-32.0); CREATININE 0.6 mg/dL (0.6-1.0); EST CRCL DRUG DOSING (CG) 55.49 mL/min; MAGNESIUM 1.9 mg/dL (1.8-2.4); POTASSIUM,K 3.8 mmol/L (3.5-5.1); PROTEIN TOTAL,TP 6.8 g/dL (6.4-8.2)
[2023-07-13] MEDS: predniSONE 20 MG Tab PO SCH (08:39)
[2023-07-13] MEDS: Apixaban 5 MG Tab PO SCH ×2 (08:40→21:56)
[2023-07-13] MEDS: Losartan 50 MG Tab PO SCH (08:40)
[2023-07-13] MEDS: amLODIPine 5 MG Tab PO SCH (08:41)
[2023-07-13] MEDS: Furosemide 40 MG/4 ML VIAL IVPUSH SCH (08:42)
[2023-07-13] MEDS: Pantoprazole 40 MG Tab.CR PO SCH (08:43)
[2023-07-13] MEDS: Cefepime 2 GM in Sodium Chloride 0.9% 50 ML IV SCH ×2 (08:43→21:59)
[2023-07-13] MEDS ORDERED: Metoprolol Tartrate 25 MG Tab PO ONE (08:54)
[2023-07-13] MEDS ORDERED: Magnesium Sulfate/Water 2 GM in Premix Bag 1 BAG IV ONE (10:06)
[2023-07-13] MEDS ORDERED: Potassium Chloride 20 MEQ Tab.ER PO ONE (10:06)
[2023-07-13] MEDS ORDERED: Lidocaine 2% Viscous Solution 15 ML UD MUCMEM PRN (13:37)
[2023-07-13] MEDS: Pravastatin 40 MG Tab PO SCH (21:56)
[2023-07-14] MEDS: Albuterol/Ipratropium 3.0-0.5 MG/3 ML Neb Soln NEB SCH ×3 (01:02→12:47)
[2023-07-14] MEDS: Metoprolol Tartrate 25 MG Tab PO SCH (05:53)
[2023-07-14] MEDS: Insulin Aspart 100 Units/ML 3 ML Pen SUBCUT SCH ×2 (07:03→12:37)
[2023-07-14 08:17] LABS: BASOPHILS ABSOLUTE AUTO 0.01 K/uL (0.00-0.20); BASOPHILS PERCENT AUTO 0.1 % (0.0-1.0); EOSINOPHILS ABSOLUTE AUTO 0.03 K/uL (0.00-0.45); EOSINOPHILS PERCENT AUTO 0.3 % (0.0-6.0); HEMATOCRIT 39.3 % (37.0-47.0); IMMATURE GRAN ABSOLUTE AUTO 0.17 K/uL (0.00-0.05); IMMATURE GRAN PERCENT AUTO 1.5 % (0.0-0.4); LYMPHOCYTES ABSOLUTE AUTO 2.48 K/uL (1.00-4.80); LYMPHOCYTES PERCENT AUTO 22.3 % (24.0-44.0); MEAN CORPUSCULAR HEMOGLOBIN 24.3 pg (28.0-32.0); MEAN CORPUSCULAR HGB CONC 33.1 g/dL (32.0-36.0); MEAN CORPUSCULAR VOLUME 73.5 fL (83.0-99.0); MEAN PLATELET VOLUME 9.1 fL (9.4-12.3); MONOCYTES ABSOLUTE AUTO 0.84 K/uL (0.00-0.80); MONOCYTES PERCENT AUTO 7.6 % (0.0-8.0); NEUTROPHILS ABSOLUTE AUTO 7.57 K/uL (1.80-7.70); NEUTROPHILS PERCENT AUTO 68.2 % (41.0-71.0); PLATELET COUNT,PLT 374 K/uL (150-400); RED BLOOD CELL COUNT 5.35 M/uL (4.10-5.30)
[2023-07-14 08:52] LABS: A/G RATIO 0.7 (0.9-1.6); ALBUMIN 3.3 g/dL (3.4-5.0); BILIRUBIN TOTAL 0.4 mg/dL (0.2-1.0); CALCIUM 9.3 mg/dL (8.5-10.1); CARBON DIOXIDE,CO2 28.3 mmol/L (21.0-32.0); CREATININE 0.7 mg/dL (0.6-1.0); EST CRCL DRUG DOSING (CG) 47.56 mL/min; POTASSIUM,K 3.9 mmol/L (3.5-5.1); PROTEIN TOTAL,TP 7.8 g/dL (6.4-8.2)
[2023-07-14] MEDS: predniSONE 20 MG Tab PO SCH (09:34)
[2023-07-14] MEDS: Apixaban 5 MG Tab PO SCH (09:35)
[2023-07-14] MEDS: Pantoprazole 40 MG Tab.CR PO SCH (09:35)
[2023-07-14] MEDS: Losartan 50 MG Tab PO SCH (09:35)
[2023-07-14] MEDS: amLODIPine 5 MG Tab PO SCH (09:37)
[2023-07-14] MEDS: Cefepime 2 GM in Sodium Chloride 0.9% 50 ML IV SCH (09:38)
[2023-07-14] MEDS: Furosemide 40 MG/4 ML VIAL IVPUSH SCH (09:40)
== END 2023-07-14 13:30 | DRG 871 ==
LOC: MW.ED 20:03 → MW.MS 22:58 → MW.ICU 07-07 05:22 → MW.MS 07-09 10:06 → MW.ICU 07-10 04:45 → MW.MS 07-12 16:27
PROVIDERS: ADMIT Internal Medicine; ATTEND Internal Medicine
PROC: 4A043R1 Measurement of Venous Saturation, Peripheral, Percutaneous Approach (ICD-10-PCS; principal; 2023-07-06)
PROC: 3E03329 Introduction of Other Anti-infective into Peripheral Vein, Percutaneous Approach (ICD-10-PCS; 2023-07-06)
DX: A41.9 Sepsis, unspecified organism (principal); Z20.822 Contact with and (suspected) exposure to COVID-19; J18.9 Pneumonia, unspecified organism; I50.9 Heart failure, unspecified; J96.01 Acute respiratory failure with hypoxia; I50.32 Chronic diastolic (congestive) heart failure; I69.354 Hemiplegia and hemiparesis following cerebral infarction affecting left non-dominant side; E87.20 Acidosis, unspecified; I48.0 Paroxysmal atrial fibrillation; I35.0 Nonrheumatic aortic (valve) stenosis; Z86.16 Personal history of COVID-19; H91.90 Unspecified hearing loss, unspecified ear; I11.0 Hypertensive heart disease with heart failure; E78.00 Pure hypercholesterolemia, unspecified; K21.9 Gastro-esophageal reflux disease without esophagitis; E11.9 Type 2 diabetes mellitus without complications; R65.20 Severe sepsis without septic shock; J45.909 Unspecified asthma, uncomplicated; Z11.52 Encounter for screening for COVID-19; Z79.84 Long term (current) use of oral hypoglycemic drugs; Z79.899 Other long term (current) drug therapy; Z79.01 Long term (current) use of anticoagulants; Z79.4 Long term (current) use of insulin
CPT/HCPCS: 0240U; 36415; 70450; 71045; 71275; 80048; 80053; 80202; 81001; 82803; 82947; 83605; 83735; 83880; 84484; 85025; 85379; 85610; 85730; 86140; 87040; 87486; 87581; 87633; 87641; 93005; 93306; 94640; 96361; 96365; 97110; 97161; 97530; 99285; 99223; 99231; 99232; 99239; 99291; A9270-GY; J0456; J0692; J1650; J1815-GY; J1940; J3370; J3475; J3490; J7030; J7050; J7120; J7620-GY; Q9967; U0002

== ENCOUNTER 2023-07-16 13:20 | Emergency (ER) | payer MEDICARE, MEDICAID ==
[2023-07-16] MEDS ORDERED: Sodium Chloride 0.9% 2.5 ML Syringe FLUSH PRN (13:28)
[2023-07-16] MEDS ORDERED: Sodium Chloride 0.9% 10 ML Syringe FLUSH PRN (13:28)
[2023-07-16] MEDS ORDERED: Albuterol/Ipratropium 3.0-0.5 MG/3 ML Neb Soln NEB ONE (13:28)
[2023-07-16 13:51] LABS: BASOPHILS ABSOLUTE AUTO 0.02 K/uL (0.00-0.20); BASOPHILS PERCENT AUTO 0.2 % (0.0-1.0); EOSINOPHILS ABSOLUTE AUTO 0.12 K/uL (0.00-0.45); EOSINOPHILS PERCENT AUTO 1.2 % (0.0-6.0); HEMATOCRIT 38.1 % (37.0-47.0); HEMOGLOBIN 12.4 g/dL (12.0-16.0); IMMATURE GRAN ABSOLUTE AUTO 0.08 K/uL (0.00-0.05); IMMATURE GRAN PERCENT AUTO 0.8 % (0.0-0.4); LYMPHOCYTES ABSOLUTE AUTO 2.51 K/uL (1.00-4.80); MEAN CORPUSCULAR HEMOGLOBIN 24.3 pg (28.0-32.0); MEAN CORPUSCULAR HGB CONC 32.5 g/dL (32.0-36.0); MEAN CORPUSCULAR VOLUME 74.7 fL (83.0-99.0); MEAN PLATELET VOLUME 9.2 fL (9.4-12.3); MONOCYTES ABSOLUTE AUTO 0.79 K/uL (0.00-0.80); MONOCYTES PERCENT AUTO 7.9 % (0.0-8.0); NEUTROPHILS ABSOLUTE AUTO 6.51 K/uL (1.80-7.70); NEUTROPHILS PERCENT AUTO 64.9 % (41.0-71.0); PLATELET COUNT,PLT 346 K/uL (150-400); WHITE BLOOD CELL COUNT,WBC 10.03 K/uL (3.9-11.3)
[2023-07-16 14:08] LABS: INR 1.12 (0.86-1.11)
[2023-07-16 14:19] LABS: A/G RATIO 0.8 (0.9-1.6); ALANINE AMINOTRANSFERASE,ALT 50 IU/L (14-63); ALBUMIN 3.2 g/dL (3.4-5.0); ALKALINE PHOSPHATASE 67 U/L (46-116); ASPARTATE AMNIOTRANSFERASE,AST 31 IU/L (15-37); BILIRUBIN TOTAL 0.4 mg/dL (0.2-1.0); BLOOD UREA NITROGEN,BUN 29 mg/dL (7.0-18.0); CALCIUM 9.6 mg/dL (8.5-10.1); CARBON DIOXIDE,CO2 28.4 mmol/L (21.0-32.0); CHLORIDE,CL 100 mmol/L (98-107); CREATININE 1.2 mg/dL (0.6-1.0); GLUCOSE RANDOM 145 mg/dL (74-106); POTASSIUM,K 4.1 mmol/L (3.5-5.1); PROTEIN TOTAL,TP 7.2 g/dL (6.4-8.2); SODIUM,NA 138 mmol/L (136-145)
[2023-07-16 14:23] LABS: ESTIMATED GFR 45 mL/min (>60)
[2023-07-16] MEDS ORDERED: Sodium Chloride 0.9% 1,000 ML IV ONE (14:36)
[2023-07-16] MEDS ORDERED: Sucralfate Suspension 1 GM/10 ML Cup PO ONE (14:36)
[2023-07-16] MEDS ORDERED: Lidocaine 4% 1 each Patch TOP STA (16:19)
== END 2023-07-16 17:29 ==
LOC: MW.ED 13:20
DX: I25.10 Atherosclerotic heart disease of native coronary artery without angina pectoris (principal); I11.0 Hypertensive heart disease with heart failure; I50.9 Heart failure, unspecified; E78.00 Pure hypercholesterolemia, unspecified; K21.9 Gastro-esophageal reflux disease without esophagitis; E11.9 Type 2 diabetes mellitus without complications; Z86.16 Personal history of COVID-19; Z79.84 Long term (current) use of oral hypoglycemic drugs; Z79.01 Long term (current) use of anticoagulants; Z79.899 Other long term (current) drug therapy
CPT/HCPCS: 36415; 71045; 80053; 83880; 84484; 85025; 85610; 93005; 96360; 99285; A9270; J3490; J7030; 93010; 99283; J7620-GY

== ENCOUNTER 2025-05-11 11:29 | Emergency (ER) | payer MEDICARE, MEDICAID ==
[2025-05-11 12:14] LABS: BASOPHILS ABSOLUTE AUTO 0.04 K/uL (0.00-0.20); BASOPHILS PERCENT AUTO 0.4 % (0.0-1.0); EOSINOPHILS ABSOLUTE AUTO 0.05 K/uL (0.00-0.45); EOSINOPHILS PERCENT AUTO 0.5 % (0.0-6.0); IMMATURE GRAN ABSOLUTE AUTO 0.01 K/uL (0.00-0.05); IMMATURE GRAN PERCENT AUTO 0.1 % (0.0-0.4); LYMPHOCYTES ABSOLUTE AUTO 1.58 K/uL (1.00-4.80); LYMPHOCYTES PERCENT AUTO 16.1 % (24.0-44.0); MEAN PLATELET VOLUME 8.6 fL (9.4-12.3); MONOCYTES ABSOLUTE AUTO 0.55 K/uL (0.00-0.80); MONOCYTES PERCENT AUTO 5.6 % (0.0-8.0); NEUTROPHILS ABSOLUTE AUTO 7.58 K/uL (1.80-7.70); NEUTROPHILS PERCENT AUTO 77.3 % (41.0-71.0); NRBC ABSOLUTE 0.00 K/uL (0.00-0.02); NRBC PERCENT 0.0 /100WBC (0.0-0.2); PLATELET COUNT,PLT 341 K/uL (150-400); RED BLOOD CELL COUNT 4.30 M/uL (4.10-5.30); WHITE BLOOD CELL COUNT,WBC 9.81 K/uL (3.9-11.3)
[2025-05-11] MEDS: Ondansetron 4 MG/2 ML SDV IVPUSH ONE (12:18)
[2025-05-11] MEDS: Sodium Chloride 0.9% 2.5 ML Syringe FLUSH PRN (12:18)
[2025-05-11] MEDS: Sodium Chloride 0.9% 10 ML Syringe FLUSH PRN (12:18)
[2025-05-11 12:36] LABS: APPEARANCE,URINE CLEAR; GLUCOSE,URINE NEGATIVE (NEGATIVE); OCCULT BLOOD,URINE TRACE-LYSED (NEGATIVE)
[2025-05-11 12:37] LABS: A/G RATIO 0.7 (0.9-1.6); ALANINE AMINOTRANSFERASE,ALT 25.0 IU/L (14-63); ASPARTATE AMNIOTRANSFERASE,AST 26.0 IU/L (15-37); BILIRUBIN TOTAL 0.4 mg/dL (0.2-1.0); BLOOD UREA NITROGEN,BUN 19.0 mg/dL (7.0-18.0); CARBON DIOXIDE,CO2 25.2 mmol/L (21.0-32.0); CHLORIDE,CL 102.0 mmol/L (98-107); CREATININE 1.3 mg/dL (0.6-1.0); EST CRCL DRUG DOSING (CG) 29.5 mL/min; GLUCOSE RANDOM 115.0 mg/dL (74-106); POTASSIUM,K 3.9 mmol/L (3.5-5.1); PROTEIN TOTAL,TP 6.6 g/dL (6.4-8.2); SODIUM,NA 139.0 mmol/L (136-145)
[2025-05-11 12:38] LABS: ESTIMATED GFR 41.0 mL/min (>60)
[2025-05-11 12:42] LABS: EPITHELIAL CELLS,URINE FEW (NONE-FEW)
[2025-05-11] MEDS: Iopamidol 755 Mg/ML 100 ML Bottle IVPUSH ONE (12:59)
[2025-05-11] MEDS: Amoxicillin/Clavulanate K 875-125 MG Tab PO ONE (13:34)
== END 2025-05-11 13:47 | disposition home or self-care (01) ==
LOC: MW.ED 11:29
DX: K52.9 Noninfective gastroenteritis and colitis, unspecified (principal); I11.0 Hypertensive heart disease with heart failure; I50.9 Heart failure, unspecified; E11.9 Type 2 diabetes mellitus without complications; K21.9 Gastro-esophageal reflux disease without esophagitis; Z86.16 Personal history of COVID-19; Z79.01 Long term (current) use of anticoagulants; Z79.84 Long term (current) use of oral hypoglycemic drugs; Z79.51 Long term (current) use of inhaled steroids; Z79.899 Other long term (current) drug therapy
CPT/HCPCS: 36415; 74177; 80053; 81001; 83690; 85025; 96374; 99284; A9270; J2405; J7030; Q9967; 99283